=== PATIENT | male | born 1955 | race Caucasian/White ===

== ENCOUNTER 2017-05-13 15:19 | Emergency (ER) | payer OTHER, BC ==
[~2017-05-13] VITALS: Ht 182.9 cm; Wt 97.5 kg
--- OUTSIDE RECORDS SUMMARY | ~2017-05-13 | XMS | Clinical Summary ---
Demographics + + + | Address | [address] [place] [address] WAY | | | [place] [address] | + + + | Home Phone | | + + + | Preferred Language | Unknown | + + + | Marital Status | Single | + + + | Taoism Affiliation | Unknown | + + + | Race | White | + + + | Ethnic Group | Other Race | + + + Author + + + | Author | [facility] | + + + | Organization [...] Team Providers + +------+ + | Care Tube Bending Machine Operator Name | Role | Phone | + +------+ + | Santy Kyle MD | PP | | + +------+ + Source Comments MARYBEL is fully live on both [facility] Ambulatory and [facility] InPatient.[facility] Allergies Not on File Current Medications + + +-------+---------+------+------+-------+ | Prescription | Sig. | Disp. | Refills | Star | End | Statu | | | | | | t | Date | s | | | | | | Date | | | + + +-------+---------+------+------+-------+ | lamoTRIgine | Take 150 mg by mouth | | | | | Activ | | (LAMICTAL) 150 mg | two times daily. | | | | | e | | oral tablet | | | | | | | + + +-------+---------+------+------+-------+ | divalproex DR | Take 500 mg by mouth | | | | | Activ | | (DEPAKOTE) 500 mg | two times daily. | | | | | e | | oral tablet,delayed | | | | | | | | release (/CHERYL) | | | | | | | + + +-------+---------+------+------+-------+ | topiramate 100 mg | Take 100 mg by mouth | | | | | Activ | | oral tablet | two times daily. | | | | | e | + + +-------+---------+------+------+-------+ | FLUoxetine 10 mg | Take 10 mg by mouth | | | | | Activ | | oral tablet | once daily. | | | | | e | + + +-------+---------+------+------+-------+ | | Take 1 tablet by | | | | | Activ | | HYDROcodone-acetamin [...] | | | | | + + +-------+---------+------+------+-------+ | SUMAtriptan 6 | Inject 1 kit under | | | | | Activ | | mg/0.5 [...] | | | | | + + +-------+---------+------+------+-------+ | diphenhydrAMINE | 4-5 times daily as | | | | | Activ | | (BENADRYL) 25 mg | needed. | | | | | e | | oral capsule | | | | | | | + + +-------+---------+------+------+-------+ | naproxen 500 mg | Take 500 mg by mouth | | | | | Activ | | oral tablet | two times daily. | | | | | e | + + +-------+---------+------+------+-------+ Active Problems + + + | Problem [...] + +---------+ + | Alcohol Use | Drinks/We | oz/Week | Comments | | | ek | | | + + +---------+ + | Yes | | | | + + +---------+ + + + + | Sex Assigned at | Date Recorded | | | | + + + | Not on file | | + + + Last Filed Vital Signs + +---------+ + | Vital Sign | Reading | Time Taken | + +---------+ + | Blood Pressure | 119/66 | 01/16/2013 10:22 AM PST | + +---------+ + | Pulse | 54 | 01/16/2013 10:22 AM PST | + +---------+ + | Temperature | - | - | + +---------+ + | Respiratory Rate | - | - | + +---------+ + | Oxygen Saturation | - | - | + +---------+ + | Inhaled Oxygen | - | - | | Concentration | | | + +---------+ + | Weight | - | - | + +---------+ + | Height | - | - | + +---------+ + | Body Mass Index | - | - | + +---------+ + Plan of Treatment + + + + + | Health Maintenance | Due Date | Last Done | Comments | + + + + + | INFLUENZA VACCINE | | 12/02/2014 | | | (FLU SHOT) | 7 | | | + + + + + Results Not on filefrom Last 3 Months"
--- OUTSIDE RECORDS SUMMARY | ~2017-05-13 | XMS | Clinical Summary ---
Demographics + + + | Address | [address] [place] [address] WAY | | | [place] [address] | + + + | Home Phone | | + + + | Preferred Language | Unknown | + + + | Marital Status | Single | + + + | Latter Day Affiliation | Unknown | + + + | Race | White | + + + | Ethnic Group | Other Race | + + + Author + + + | Author | [facility] | + + + | Organization [...] Team Providers + +------+ + | Care Youth Career Specialist Name | Role | Phone | + +------+ + | Santy Kyle MD | PP | | + +------+ + Source Comments MARYBEL is fully live on both [facility] Ambulatory and [facility] InPatient.[facility] Allergies [...]
[~2017-05-13 15:19] MED LIST: DEPAKOTE ER500 MG PO; HYDROCODON-ACE1 EAC8 PO; IMITREX6 MG/0.5 M SQ; LAMICTAL150 MG PO; PROZAC10 MG PO; SEROQUEL XR300 MG PO; VERAPAMIL ER240 MG PO
[2017-05-13] MEDS ORDERED: GABAPENTIN300 MG PO (15:34)
== END 2017-05-13 18:31 | disposition home or self-care (01) ==
LOC: ED 15:19
DX: S76.311A Strain of muscle, fascia and tendon of the posterior muscle group at thigh level, right thigh, initial encounter (principal); Z79.899 Other long term (current) drug therapy; X50.9XXA Other and unspecified overexertion or strenuous movements or postures, initial encounter; Y93.39 Activity, other involving climbing, rappelling and jumping off; Y92.89 Other specified places as the place of occurrence of the external cause
CPT/HCPCS: 99282

== ENCOUNTER 2019-10-09 08:51 | Emergency (ER) | payer BC ==
[~2019-10-09] VITALS: Ht 182.9 cm; Wt 93.4 kg
--- OUTSIDE RECORDS SUMMARY | ~2019-10-09 | XMS | Encounter Summary ---
Demographics + + + | Address | [address] | | | [place] [address] | + + + | Home Phone | | + + + | Preferred Language | Unknown | + + + | Marital Status | | + + + | Latter-Day Affiliation | Unknown | + + + | Race | Unknown | + + + | Ethnic Group | Unknown | + + + Author + + + | Author | [facility] | | | and [place] | + + + | Organization | [facility] | | | and [place] | + + + | Address | Unknown | + + + | Phone | Unavailable | + + + Support + + +---------+ + | Name | Relationship | Address | Phone | + + +---------+ + | Alethea Zengey | ECON | Unknown | | + + +---------+ + | Zack Cee | ECON | Unknown | | + + +---------+ + Care Team Providers + +------+ + | Care Senior Coldfusion Developer Name | Role | Phone | + +------+ + | Santy Kyle MD | PCP | | + +------+ + Encounter Details +--------+ + + + + | Date | Type | Department | Care Team | Description | +--------+ + + + + | 09/18/ | Orders Only | [facility] | Provider, | | | 2018 | | [facility] GENER[facility] OP | [address] | | | | | [address] | [address] | | | | | [address], [place] | [place] [address] | | | | | [address] | | | | | | [phone] | | | +--------+ + + + + Social History + +-------+ +--------+------+ | Tobacco Use | Types | Packs/Day | Years | Date | | | | | Used | | + +-------+ +--------+------+ | Never Smoker | | | | | + +-------+ +--------+------+ + +---+---+---+ | Smokeless Tobacco: | | | | | Never Used | | | | + +---+---+---+ + + +---------+ + | Alcohol Use | Drinks/Week | oz/Week | Comments | + + +---------+ + | Yes | 0 Standard drinks | 0.0 | twice monthly | | | or equivalent | | | + + +---------+ + + + + | Sex Assigned at | Date Recorded | | | | + + + | Not on file | | + + + documented as of this encounter Plan of Treatment +--------+---------+ + + + | Date | Type | Specialty | Care Team | Description | +--------+---------+ + + + | 10/30/ | Office | Neurology | Isac Arechiga, | | | 2020 | Visit | | [facility] | | | | | | [address] | | | | | | [place] [address] | | | | | | [phone] | | | | | | | | +--------+---------+ + + + documented as of this encounter Visit Diagnoses Not on filedocumented in this encounter"
--- OUTSIDE RECORDS SUMMARY | ~2019-10-09 | XMS | Clinical Summary ---
Demographics + + + | Address | [address] | | | [place] [address] | + + + | Home Phone | | + + + | Preferred Language | Unknown | + + + | Marital Status | Single | + + + | Mormonism Affiliation | Unknown | + + + | Race | White | + + + | Ethnic Group | Other Race | + + + Author + + + | Author | [facility] | + + + | Organization | [facility] | + + + | Address | Unknown | + + + | Phone | Unavailable | + + + Support + + +---------+ + | Name | Relationship | Address | Phone | + + +---------+ + | Alethea Contreras | ECON | Unknown | | + + +---------+ + Care Team Providers + +------+ + | Care Ophthalmic Assistant Name | Role | Phone | + +------+ + | Santy Kyle MD | PCP | | + +------+ + Source Comments MARYBEL is fully live on both [facility] Ambulatory and [facility] InPatient.[facility] Allergies Not on File Medications + + + +---------+------+------+-------+ | Medication | Sig | Dispensed | Refills | Star | End | Statu | | | | | | t | Date | s | | | | | | Date | | | + + + +---------+------+------+-------+ | lamoTRIgine | Take 150 mg by mouth | | 0 | | | Activ | | (LAMICTAL) 150 mg | two times daily. | | | | | e | | oral tablet | | | | | | | + + + +---------+------+------+-------+ | divalproex DR | Take 500 mg by mouth | | 0 | | | Activ | | (DEPAKOTE) 500 mg | two times daily. | | | | | e | | oral tablet,delayed | | | | | | | | release (/CHERYL) | | | | | | | + + + +---------+------+------+-------+ | topiramate 100 mg | Take 100 mg by mouth | | 0 | | | Activ | | oral tablet | two times daily. | | | | | e | + + + +---------+------+------+-------+ | FLUoxetine 10 mg | Take 10 mg by mouth | | 0 | | | Activ | | oral tablet | once daily. | | | | | e | + + + +---------+------+------+-------+ | | Take 1 tablet by | | 0 | | | Activ | | HYDROcodone-acetamin | mouth as needed. Not | | | | | e | | ophen 10-325 mg oral | to exceed 10 | | | | | | | tablet | tablets per any 24 | | | | | | | | hour period. (Not to | | | | | | | | exceed 3250 mg of | | | | | | | | acetaminophen from | | | | | | | | all products per 24 | | | | | | | | hour period.) | | | | | | + + + +---------+------+------+-------+ | SUMAtriptan 6 | Inject 1 kit under | | 0 | | | Activ | | mg/0.5 mL | the skin (SUBC) as | | | | | e | | subcutaneous Pen | needed. A second | | | | | | | Injector | injection may be | | | | | | | | administered at | | | | | | | | least 1 hour after | | | | | | | | the initial dose, | | | | | | | | but not more than 2 | | | | | | | | injections in a 24 | | | | | | | | hour period. | | | | | | + + + +---------+------+------+-------+ | diphenhydrAMINE | 4-5 times daily as | | 0 | | | Activ | | (BENADRYL) 25 mg | needed. | | | | | e | | oral capsule | | | | | | | + + + +---------+------+------+-------+ | naproxen 500 mg | Take 500 mg by mouth | | 0 | | | Activ | | oral tablet | two times daily. 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 | + + + Social History + +-------+ +--------+------+ | Tobacco Use | Types | Packs/Day | Years | Date | | | | | Used | | + +-------+ +--------+------+ | Never Smoker | | | | | + +-------+ +--------+------+ + + +---------+ + | Alcohol Use | Drinks/Week | oz/Week | Comments | + + +---------+ + | Yes | | | | + + +---------+ + + + + | Sex Assigned at | Date Recorded | | | | + + + | Not on file | | + + + + + + + | Job Start Date | Occupation | Industry | + + + + | Not on file | Not on file | Not on file | + + + + + + + + | Travel History | Travel Start | Travel End | + + + + + + | No recent travel history available. | + + Last Filed Vital Signs + +---------+ + + | Vital Sign | Reading | Time Taken | Comments | + +---------+ + + | Blood Pressure | 119/66 | 01/16/2013 10:22 AM | | | | | PST | | + +---------+ + + | Pulse | 54 | 01/16/2013 10:22 AM | | | | | PST | | + +---------+ + + | Temperature | - | - | | + +---------+ + + | Respiratory Rate | - | - | | + +---------+ + + | Oxygen Saturation | - | - | | + +---------+ + + | Inhaled Oxygen | - | - | | | Concentration | | | | + +---------+ + + | Weight | - | - | | + +---------+ + + | Height | - | - | | + +---------+ + + | Body Mass Index | - | - | | + +---------+ + + Plan of Treatment + + + + + | Health Maintenance | Due Date | Last Done | Comments | + + + + + | Influenza (Flu) | | 12/02/2014 | | | vaccination (#1) | 9 | | | + + + + + | Pneumococcal | Aged Out | | No longer eligible | | vaccination | | | based on patient's | | | | | age to complete this | | | | | topic | + + + + + Results Not on filefrom Last 3 Months Insurance + +--------+ +--------+ + +------+ | Payer | Benefi | Subscriber | Effect | Phone | Address | Type | | | t Plan | ID | ajit | | | | | | / | | Dates | | | | | | Group | | | | | | + +--------+ +--------+ + +------+ | [place] | BLUE | [phone] | Effect | [phone] | [address] | PPO | | | CROSS | | ajit | [address] | [phone] [address] | | | | [place] | | for | | [place], | | | | L | | all | | [place] [address] | | | | | | dates | | | | + +--------+ +--------+ + +------+ | MODA | MODA | [phone] | Effect | [phone] | [address] | PPO | | | CONNEX | | ajit | 4 | [phone] | | | | [place] | | for | | [place], | | | | | | all | | [place] [address] | | | | | | dates | | | | + +--------+ +--------+ + +------+ + +--------+ +--------+ + + | Guarantor Name | Accoun | Relation to | Date | Phone | Billing Address | | | t Type | Patient | of | | | | | | | | | | + +--------+ +--------+ + + | Gera Contreras | Person | Self | [birth year] | [address] | | | [place] | | 1954 | [phone] | [place] | | | jessica | | | 8 (Home) | [address] | | | | | | [phone] | | | | | | | 4 (Work) | | + +--------+ +--------+ + +"
--- OUTSIDE RECORDS SUMMARY | ~2019-10-09 | XMS | Encounter Summary ---
Demographics + + + | Address | [address] | | | [place] [address] | + + + | Home Phone | | + + + | Preferred Language | Unknown | + + + | Marital Status | | + + + | Adventist Affiliation | Unknown | + + + | Race | Unknown | + + + | Ethnic Group | Unknown | + + + Author + + + | Author | [facility] | | | and [place] | + + + | Organization | [facility] | | | and [...] Team Providers + +------+ + | Care Retort Kiln Burner Name | Role | Phone | + +------+ + | Santy Kyle MD | PCP | | + +------+ + Reason for Visit + + + | Reason | Comments | + + + | Medication Refill | | + + + Encounter Details +--------+--------+ + + + | Date | Type | Department | Care Team | Description | +--------+--------+ + + + | 05/28/ | Refill | [facility] | Isac Arechiga, | Medication Refill | | 2020 | | NEUROLOGY [address] | [address] | | | | | [address] | [address] [facility] [address] | | | | | [place], [place] | [place] [address] | | | | | [address] | [phone] | | | | | [phone] | | | +--------+--------+ + + + Social History + +-------+ [...] + + documented as of this encounter Miscellaneous Notes Telephone Encounter - Joanne Gonzalez, Senior Nuclear Medicine Technologist - 05/29/2019 11:28 AM PDTLast Refill:10/26/18 Refill Qty:5 Last Visit:09/07/19 Next Appt:08/08/19 Called patient: yes called patient to RS missed appointment in 11/2018 and we RS to 08/08/19 @ 3:45pm Please sign if appropriate. do cumented in this encounter Plan of Treatment +--------+---------+ + + + | Date | Type | Specialty | Care Team | Description | +--------+---------+ + + + | 10/30/ | Office | Neurology | Isac Arechiga, | | | 2019 | Visit | | [facility] | | | | | | [address] | | | | | | [place] [address] | | | | | | [phone] | | | | | | | | +--------+---------+ + + + documented as of this encounter Visit Diagnoses Not on filedocumented in this encounter"
--- OUTSIDE RECORDS SUMMARY | ~2019-10-09 | XMS | Encounter Summary ---
Demographics + + + | Address | [address] | | | [place] [address] | + + + | Home Phone | | + + + | Preferred Language | Unknown | + + + | Marital Status | | + + + | Gnosticist Affiliation | Unknown | + + + | Race | Unknown | + + + | Ethnic Group | Unknown | + + + Author + + + | Author | [facility] | | | and [place] | + + + | Organization | [facility] | | | and [...] Team Providers + +------+ + | Care Rn Admit Name | Role | Phone | + +------+ + | No, Unknownpcp | PCP | | + +------+ + Encounter Details +--------+ + + + + | Date | Type | Department | Care Team | Description | +--------+ + + + + | 03/15/ | Hospital | [facility] | Seema Figueroa, | | | 2013 | Encounter | [facility] | PET ADOPTION COUNSELOR [address] | | | | | [facility] [address] | [address] [place], [place] | | | | | [address] [place], | [address] | | | | | [place] [address] | | | | | | [phone] | | | +--------+ + + + [...] +---------+ + | Yes | | | twice monthly | + + +---------+ + + + + | Sex Assigned at | Date Recorded | | | | + + + | Not on file | | + + + documented as of this encounter Medications at Time of Discharge + + + +---------+ + + | Medication | Sig | Dispensed | Refills | Start | End Date | | | | | | Date | | + + + +---------+ + + | FLUoxetine | Take 20 mg by mouth | | 0 | | | | (PROZAC) 20 mg | Daily. | | | | | | capsule | | | | | | + + + +---------+ + + | divalproex | 2 tablets by mouth | | 0 | 11/05/19 | | | (DEPAKOTE) 500 mg EC | at bedtime | | | 12 | 6 | | tablet | | | | | | + + + +---------+ + + | | 1 3-4 TIMES A DAY | | 0 | 11/05/19 | | | HYDROcodone-acetamin | NEEDED | | | 12 | 0 | | ophen (NORCO) 10-325 | | | | | | | mg per tablet | | | | | | + + + +---------+ + + | lamotrigine | Take 150 mg by mouth | | 0 | 11/05/19 | | | (LAMICTAL) 150 MG | 2 times daily. | | | 12 | 0 | | tablet | | | | | | + + + +---------+ + + | nadolol (CORGARD) | Take 40 mg by mouth | | 0 | | | | 40 mg tablet | Daily. | | | | 6 | + + + +---------+ + + | SUMAtriptan | Take 50 mg by mouth | | 0 | 11/05/19 | | | (IMITREX) 50 mg | as needed. | | | 12 | 0 | | tablet | | | | | | + + + +---------+ + + documented as of this encounter Plan of Treatment +--------+---------+ + + + | Date | Type | Specialty | Care Team | Description | +--------+---------+ + + + | 10/30/ | Office | Neurology | Isac Arechiga, | | | 2020 | Visit | | [facility] | | | | | | [address] | | | | | | [place] [address] | | | | | | [phone] | | | | | | | | +--------+---------+ + + + documented as of this encounter Visit Diagnoses Not on filedocumented in this encounter"
--- OUTSIDE RECORDS SUMMARY | ~2019-10-09 | XMS | Encounter Summary ---
Demographics + + + | Address | [address] | | | [place] [address] | + + + | Home Phone | | + + + | Preferred Language | Unknown | + + + | Marital Status | | + + + | Lutheran Affiliation | Unknown | + + + | Race | Unknown | + + + | Ethnic Group | Unknown | + + + Author + + + | Author | [facility] | | | and [place] | + + + | Organization | [facility] | | | [...] Team Providers + +------+ + | Care Night Clerk Auditor Name | Role | Phone | + +------+ + | Santy Kyle MD | PCP | | + +------+ + Reason for Visit + +--------+ + | Reason | Onset | Comments | | | Date | | + +--------+ + | Medication Question | 08/19/ | | | | 2020 | | + +--------+ + Encounter Details +--------+--------+ + + + | Date | Type | Department | Care Team | Description | +--------+--------+ + + + | 08/19/ | Refill | [facility] | Isac Arechiga, | Medication Question | | 2020 | | NEUROLOGY [address] | [address] | | | | | [address] | [address] | | | | | [place], [place] | [place] [address] | | | | | [address] | [phone] | | | | | [phone] | | | +--------+--------+ + + + [...] this encounter Miscellaneous Notes Telephone Encounter - Simona Valle CMA - 08/20/2019 11:16 AM [facility] called and spoke to Raad keller regarding his insurance denying coverage of Ubrelvy. He stated that he already picked up the Ubrelvy at the pharmacy. I explained that the copay card he used will only work for t he 1st fill and not for the subsequent refills since the insurance denied coverage. I explai yolette his option of covered preventatives. Since he has tried Aimovig without sustained effica cy, his next option is Emgality. He agreed to try Emgality. Prescription request for Emgalit y sent to provider. doc umented in this encounter Plan of Treatment +--------+---------+ + + + | Date | Type | Specialty | Care Team | Description | +--------+---------+ + + + | 10/30/ | Office | Neurology | Isac Arechiga, | | 2019 | Visit | | [facility] | | | | | | [address] | | | | | | [place] [address] | | | | | | [phone] | | | | | | | | +--------+---------+ + + + documented as of this encounter Visit Diagnoses Not on filedocumented in this encounter"
--- OUTSIDE RECORDS SUMMARY | ~2019-10-09 | XMS | Encounter Summary ---
Demographics + + + | Address | [address] | | | [place] [address] | + + + | Home Phone | | + + + | Preferred Language | Unknown | + + + | Marital Status | | + + + | Jain Affiliation | Unknown | + + + | Race | Unknown | + + + | Ethnic Group | Unknown | + + + Author + + + | Author | [facility] | | | and [place] | + + + | Organization | [facility] | | | and [place] | + + + | Address | Unknown | + + + | Phone | Unavailable | + + + Support + + +---------+ + | Name | Relationship | Address | Phone | + + +---------+ + | Alethea Diane | ECON | Unknown | | + + +---------+ + | Zack Cee | ECON | Unknown | | + + +---------+ + Care Team Providers + +------+ + | Care Writer Name | Role | Phone | + +------+ + PCP | Unavailable | + +------+ + Encounter Details +--------+ + + + + | Date | Type | Department | Care Team | Description | +--------+ + + + + | 11/15/ | Hospital | [facility] | Gera Strong | | | 2009 | Encounter | MED CTR XRAY [address] | [address] | | | | | [place] | [address] [place] | | | | | [place] [address] | [place] [address] | | | | | [phone] | [phone] | | | | | | | | +--------+ + + + + Social History + +-------+ +--------+------+ | Tobacco Use | Types | Packs/Day | Years | Date | | | | | Used | | + +-------+ +--------+------+ | Never Assessed | | | | | + +-------+ +--------+------+ + + + | Sex Assigned at [...] | | | | | [place] [address] | | | | | | [phone] | | | | | | | | +--------+---------+ + + + documented as of this encounter Visit Diagnoses Not on filedocumented in this encounter"
--- OUTSIDE RECORDS SUMMARY | ~2019-10-09 | XMS | Encounter Summary ---
Demographics + + + | Address | [address] | | | [place] [address] | + + + | Home Phone | | + + + | Preferred Language | Unknown | + + + | Marital Status | | + + + | Restoration Affiliation | Unknown | + + + | Race | Unknown | + + + | Ethnic Group | Unknown | + + + Author + + + | Author | [facility] | | | and [place] | + + + | Organization | [facility] | | [...] Team Providers + +------+ + | Care Medical Practitioners Name | Role | Phone | + +------+ + PCP | Unavailable | + +------+ + Encounter Details +--------+ + + + + | Date | Type | Department | Care Team | Description | +--------+ + + + + | 06/08/ | Hospital | [facility] | | | | 2006 | Encounter | MED CTR XRAY [address] | | | | | | [address] | | | | | | [place] [address] | | | | | | [phone] | | | +--------+ + + + [...] [facility]ICE | | | | | | [address] | | | | | | [place] [address] | | | | | | [phone] | | | | | | | | +--------+---------+ + + + documented as of this encounter Visit Diagnoses Not on filedocumented in this encounter"
--- OUTSIDE RECORDS SUMMARY | ~2019-10-09 | XMS | Encounter Summary ---
Demographics + + + | Address | [address] | | | [place] [address] | + + + | Home Phone | | + + + | Preferred Language | Unknown | + + + | Marital Status | Single | + + + | Alevism Affiliation | Unknown | + + + | Race | White | + + + | Ethnic Group | Other Race | + + + Author + + + | Author | [facility] | + + + | Organization | [facility] | + + + | Address | Unknown | + + + | Phone | Unavailable | + + + Support + + +---------+ + | Name | Relationship | Address | Phone | + + +---------+ + | Alethea Contreras | ECON | Unknown | | + + +---------+ + Care Team Providers + +------+ + | Care Moving Worker Name | Role | Phone | + +------+ + | Santy Kyle MD | PCP | | + +------+ + Reason for Visit + + + | Reason | Comments | + + + | New patient | | | consultation | | + + + Consultation (Routine) +--------+--------+ + + + + | Status | Reason | Specialty | Diagnoses / | Referred By | Referred To | | | | | Procedures | Contact | Contact | +--------+--------+ + + + + | Closed | | Neurology | Diagnoses | Dickson, | [facility] | | | | | Chorea, tic | Lawson Bazan MD | Disorder Chh1 | | | | | disorder, | [place] | [address] | | | | | unusual | CLINIC | [facility] | | | | | movement | NEUROLOGY | for Health | | | | | disorder | [address] | and Healing, | | | | | | [address] | [address], | | | | | | [place], [place] | 8th Floor | | | | | | [address] | [place], [place] | | | | | | Phone: | [phone] | | | | | | [phone] | Phone: | | | | | | Fax: | [phone] | | | | | | [phone] | Fax: | | | | | | | [phone] | +--------+--------+ + + + + Encounter Details +--------+---------+ + + + | Date | Type | Department | Care Team | Description | +--------+---------+ + + + | 01/16/ | Office | Neurology at | Mika Jason MD | Psychogenic movement | | 2012 | Visit | [facility] & | [address] | disorder (Primary | | | | Healing [address] | [place], [place] | Dx) | | | | [facility] | [address] | | | | | Health and Healing, | [phone] | | | | | | | | | | | Floor [place], [place] | | | | | | [address] | | | | | | [phone] | | | +--------+---------+ + + + Social History + +-------+ [...] recent travel history available. | + + documented as of this encounter Last Filed Vital Signs + +---------+ + [...] - | | + +---------+ + + documented in this encounter Progress Notes Mika Jason MD - 01/16/2013 9:14 AM PST 58 year old man referred for evaluation of spells of shaking. He has been in good general health, although his has seen episodes of behavioral arres t ("brain zap"), ataxia ("knee giving out"), abdominal spasms with head tilt about 6 years a go (spontaneous remission after 6 weeks), and verbal outbursts ("meow", expletives), and tic -like clapping. About one month ago he began having trouble walking and driving while [place]. 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 Also funny head movements and "brain zaps", and then started having very dramatic episodes of abdominal spasm, grimacing, eyes closed, f etal position, lasting 3-7 minutes and occurring about twice a day. Also variants on this w ith unusual "choreographed" movements heralding the spells. Between episodes he is fatigued and he has been unable to return to work. He had an episode in our waiting room that will be described below. ROS: some pinkish urine, and some apparent olfactory hallucinations Past Medical History: Bipolar disorder (for which he takes depakote and lamictal) Migraines and cluster headache (for which he takes topamax) Hx neck fracture at age 22 with paralysis for 3 days and then complete recovery without adriano marilee 11 day hospitalization at age 34 for hematuria leading to a ureteral stent Current Outpatient Prescriptions Medication Sig diphenhydrAMINE (BENADRYL) 25 mg oral capsule 4-5 times daily as needed. divalproex DR (DEPAKOTE) 500 mg oral tablet,delayed release (DR/EC) Take 500 mg by mout h two times daily. FLUoxetine 10 mg oral tablet Take 10 mg by mouth once daily. HYDROcodone-acetaminophen 10-325 mg oral tablet Take 1 tablet by mouth as needed. Not t o exceed 10 tablets per any 24 hour period. (Not to exceed 3250 mg of acetaminophen from all products per 24 hour period.) lamoTRIgine (LAMICTAL) 150 mg oral tablet Take 150 mg by mouth two times daily. naproxen 500 mg oral tablet Take 500 mg by mouth two times daily. SUMAtriptan 6 mg/0.5 mL subcutaneous Pen Injector Inject 1 kit under the skin (SUBC) as needed. A second injection may be administered at least 1 hour after the initial dose, but not more than 2 injections in a 24 hour period. topiramate 100 mg oral tablet Take 100 mg by mouth two times daily. No current facility-administered medications for this visit. AllergiesNKDA` Family History: mother with fibromyalgia, father with what sounds like vertigo. Two healthy brothers, three healthyy daughters (one with bipolar and tethered cord). 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 Non-smoker, rare etoh, rare MJ PE: Vital signs: 119/66 HR=56 He had an episode beginning in the waiting area with abdominal spasms. The staff moved him quickly to an exam room, where I saw him lying on an exam table, curled up in positio n, grimacing and grunting and with occasional jerking movements. His fists were clenched an d his arms curled tightly, but he was able to answer questions appropriately throughout the episode, reporting that he felt "all squished up." After a couple of minutes of this he gra dually relaxed and he lay on the table looking exhausted. The exam below was completed delvin ral minutes later after he had recovered. CN: II-XII intact to detailed testing Motor: no pronator drift, no tremor, no rigidity, no bradykinesia. He also has full streng th. DTR: 2+ and equal SENSORY: grossly intact to LT COORD: FTN, HTS WNL. Romberg negative. Gait is WNL. Unable to walk on heels or toes, losing balance but catching himself without injury. He also had some hunching over in the exam room and some intermittent writhng movements of head and trunk but these were variable and distractable. Impression: Psychogenic movement disorder Although there are some historical features of tourette's, he does not describe a compulsio n to move or vocalize as we would expect with a tic disorder, and the spell we witnessed tod alina was closer to a non-epileptic seizure than a tic. The variability over time, the history of exacerbation with stress, and the ability to respond and interact during the most dramat ic episode all point to a psychogenic etiology. I shared this impression with the patient and his in some detail, and indicated furthe r that he can make a good recovery. Plan: 1) some patients with the condition get excellent results from physical therapy with the go al of "re-programming" abnormal motor programs. Since he has daily trouble with his gait I think he could benefit from this approach. Will ask Dr Kyle to assist with an appropriate PT referral in the [place] area. 2) the benefits of psychiatric intervention for this condition are quite variable, but sinc e he has an established mental health provider this is probably worth a try. I suggested th at short term, low dose anti-anxiety meds (ie, benzodiazepines) may be helpful for "breaking the cycle" of this stress-related condition. 3) he is anxious to get back to work but his reported that deadlines are a likely sour ce of significant stress for him. I suggested a parameter of a week free of these severe ep isodes before trying to return to work. 4) I will also try to connect with Dr Kyle by telephone to discuss management further.Caro ctronically signed by Mika Jason MD at 01/16/2013 1:06 PM PSTdocumented in this encounte r Plan of Treatment Not on filedocumented as of this encounter Visit Diagnoses + + | Diagnosis | + + | Psychogenic movement disorder - Primary Other and unspecified special symptom or | | syndrome, not elsewhere classified | + + documented in this encounter
--- OUTSIDE RECORDS SUMMARY | ~2019-10-09 | XMS | Encounter Summary ---
Demographics + + + | Address | [address] | | | [place] [address] | + + + | Home Phone | | + + + | Preferred Language | Unknown | + + + | Marital Status | | + + + | Sikh Affiliation | Unknown | + + + | Race | Unknown | + + + | Ethnic Group | Unknown | + + + Author + + + | Author | [facility] | | | and [place] | + + + | Organization | [facility] | | | [...] Team Providers + +------+ + | Care Area Development Manager Name | Role | Phone | + +------+ + | Santy Kyle MD | PCP | | + +------+ + Reason for Visit + + + | Reason | Comments | + + + | Sleep Apnea | Follow up | + + + Encounter Details +--------+---------+ + + + | Date | Type | Department | Care Team | Description | +--------+---------+ + + + | 11/02/ | Office | [facility] | Femi Morales, | Obstructive sleep | | 2015 | Visit | PULMONARY [address] | MD [address] | apnea (Primary Dx) | | | | [place], | [place] | | | | | [place] [address] | [address] | | | | | [phone] | | | +--------+---------+ + + + [...] | | | + +---+---+---+ + + | Tobacco Cessation: Counseling Given: No | + + + + +---------+ + | Alcohol Use [...] this encounter Last Filed Vital Signs + + + + + | Vital Sign | Reading | Time Taken | Comments | + + + + + | Blood Pressure | 112/80 | 11/03/2015 9:23 AM | | | | | PDT | | + + + + + | Pulse | 52 | 11/03/2015 9:23 AM | | | | | PDT | | + + + + + | Temperature | - | - | | + + + + + | Respiratory Rate | - | - | | + + + + + | Oxygen Saturation | 96% | 11/03/2015 9:23 AM | | | | | PDT | | + + + + + | Inhaled Oxygen | - | - | | | Concentration | | | | + + + + + | Weight | 93 kg (205 lb 1.6 | 11/03/2015 9:23 AM | | | | oz) | PDT | | + + + + + | Height | 185.4 cm (6' 1") | 11/03/2015 9:23 AM | | | | | PDT | | + + + + + | Body Mass Index | 27.06 | 11/03/2015 9:23 AM | | | | | PDT | | + + + + + documented in this encounter Patient Instructions Patient Instructions Femi Morales MD - 11/03/2015 9:51 AM PDT Continuous Positive Air Pressure (CPAP) Continuous positive air pressure (CPAP)uses gentle air pressure to hold the airway open. CPAP is often the most effective treatment for sleep apnea and severe snoring. It works very well for many people. But keep in mind that it can take several adjustments before the setu p is right for you. How CPAP works The CPAPmachine is asmall portable pump beside the bed. The pumpsends air through a h ose, which is held over your noseand mouthby a mask.Mild air pressureis gently pushe d through your airway. The air pressure nudges sagging tissues aside. This widens the airway so you can breathe better. CPAP may be combined with other kinds of therapy for sleep apnea . A mask over the nose gently directs air into the throat to keep the airway open. Types of air pressure treatments There are different types of CPAP. Your doctor or CPAP entry level automotive technician will help you decide whic h type is best for you: Basic CPAPkeeps the pressure constant all night long. A bilevel device(BiPAP)providesmore pressure when you breathe in and less when you breathe out.A BiPAP machine also may be set to provide automatic breaths to maintain cristine thing if you stop breathing while sleeping. An autoCPAP deviceautomatically adjusts pressure throughout the night and in response to changes such as body position, sleep stage, and snoring. [id number] [employer]. [address] [place] [address], [place] [address]. All righ ts reserved. This information is not intended as a substitute for professional medical care. Always follow your healthcare professional's instructions. documented in this encounter Progress Notes Femi Morales MD - 11/03/2015 9:37 AM PDTFormatting of this note might be different f rom the original. Pulmonary Sleep Follow Up 11/03/2015 HPI Gera Contreras is a 60 y.o. male patient of Santy Kyle MD here today for follow up of obstructive sleep apnea. He notes that they have been wearing their CPAP 8.4 hours per night 7 days per week. Their compliance has been Excellent,. They are not having issues with their CPAP machine such as the sensation of excessive pressure or a poorly fitting mask. Gera Contreras feesl like they are more rested since starting on CPAP. They are napping on a regular basis. Gera Contreras is not noting nasal congestion. They have the humidity on the machine set at unclear level. Gera Contreras typically goes to bed at 9-12 PM and rises in the morning to start the da y at 6:30 AM. He estimates that it takes <5 minutes to fall asleep. They typically have noc turia or other nighttime awakenings 8 times a night and he usually gets back to sleep easily . Rested with CPAP. No snoring pr spouse. He has has replaced their CPAP mask or tubing in the last year. Past Medical History Past Medical History Diagnosis Date Kidney stone 1987 Dystonia GERD (gastroesophageal reflux disease) Allergic rhinitis Sleep apnea 2008 AHI 33.9, 82%, CPAP 7 Anxiety associated with depression Migraine headache Bipolar disorder (HCC) 2003 Concussion 1976 H/O cervical fracture 1976 C4-5-6 Piriformis syndrome Ischial pain 01/30 Right ischial tuberostiy and rectu femoris pain w/a right femur x-ray showing a 1.5 to 2 capsule density Allergies: No Known Allergies Medications: Current outpatient prescriptions: divalproex (DEPAKOTE) 500 mg EC tablet, Take 500 mg by mouth 2 times daily., Disp: , R fl: FLUoxetine (PROZAC) 20 mg capsule, Take 20 mg by mouth Daily., Disp: , Rfl: HYDROcodone-acetaminophen (NORCO) 10-325 mg per tablet, 1 3-4 TIMES A DAY NEEDED, D isp: , Rfl: lamotrigine (LAMICTAL) 150 MG tablet, Take 150 mg by mouth 2 times daily., Disp: , Rfl : SUMAtriptan (IMITREX) 50 mg tablet, Take 50 mg by mouth as needed., Disp: , Rfl: tiZANidine (ZANAFLEX) 4 mg tablet, Take one tablet daily, Disp: , Rfl: 2 Immunizations: Immunization History Administered Date(s) Administered INFLUENZA, TRIVALENT PRESERVATIVE FREE (PED/ADOL/ADULT) 12/02/2014 Review of Systems Constitutional: Denies fever, chills, sweats, and unexpected weight change. Sleep: Denies insomnia or RLS symptoms. Eyes: Denies vision change, and eye irritation. ENT: Denies nosebleeds, sore throat, and hoarseness. Resp: Denies dyspnea, cough or sputum production. CV: Denies chest pain with exertion, palpitations, lightheadedness, orthopnea or PND. Neurologic: Denies frequent headaches, seizures or tremors. Allergy Denies urticaria, allergic rash, hay fever. Objective BP 112/80 mmHg | Pulse 52 | Ht 1.854 m (6' 1") | Wt 93.033 kg (205 lb 1.6 oz) | BMI 27.07 k g/m2 | SpO2 96% Appearance: Alert, cooperative, no distress, appears stated age Head: Normocephalic, without obvious abnormality, atraumatic Eyes: PERRL, conjunctiva/corneas clear Nose: Nares normal, septum midline, mucosa normal, no drainage or sinus tenderness Throat: Lips, mucosa, and tongue normal; teeth/dentures normal, MP 3 Neck: Supple, symmetrical, no JVD Lungs: No accessory muscle use, breath sounds are clear to auscultation bilaterally, no w heezes, crackles or rhonchi. No dullness to percussion. Chest Wall: No tenderness or deformity Heart: Regular rate and rhythm, S1, S2 normal, no murmur, rub or gallop Extremities: Extremities normal, atraumatic, no cyanosis, clubbing, or edema Skin: Warm and dry Lymph nodes: Cervical and supraclavicular nodes normal Neurologic: Gait normal Data: CPAP compliance data from 05/01/15 through 07/29/15 shows that the patient wore CPAP 89/ 90 days. Average usage is 8 hours and 28 minutes. Pressure is at 6 cm H2O. Assessment 1. Obstructive sleep apnea moderate/severe based on an RDI of 33.9 with oxygen desaturat ion down to 82%. The patient is currently wearing CPAP with excellent compliance at a press ure of 6 cm H2O. Uses using a nasal mask without issue. The patient's weight has decreased 5 lbs. 9 oz. since his last clinic appointment over 3 an d half years ago. Today we discussed the typical follow-up process for obstructive sleep apnea. The patient had several questions regarding replacement equipment and water used for the humidifier. There is no indication to change the patient's CPAP pressure. Plan 1. Pulmonary clinic follow-up appointment in 12 months time if desired by patient. 2. Continue CPAP at pressure as described above. CC: Santy Kyle MD documented in this encounter Plan of Treatment +--------+---------+ + + + | Date | Type | Specialty | Care Team | Description | +--------+---------+ + + + | 10/30/ | Office | Neurology | Isac Arechiga, | | | 2019 | Visit | | [facility] | | | | | | [facility] | | | | | | [facility] [place] [address] | | | | | | [phone] | | | | | | | | +--------+---------+ + + + documented as of this encounter Visit Diagnoses + + | Diagnosis | + + | Obstructive sleep apnea - Primary Obstructive sleep apnea (adult) (pediatric) | + + documented in this encounter
--- OUTSIDE RECORDS SUMMARY | ~2019-10-09 | XMS | Encounter Summary ---
Demographics + + + | Address | [address] | | | [place] [address] | + + + | Home Phone | | + + + | Preferred Language | Unknown | + + + | Marital Status | Single | + + + | Adventism Affiliation | Unknown | + + + | Race | White | + + + | Ethnic Group | Other Race | + + + Author + + + | Author | [facility] | + + + | Organization | [facility] | + + + | Address | Unknown | + + + | Phone | Unavailable | + + + Support + + +---------+ + | Name | Relationship | Address | Phone | + + +---------+ + | Alethea Contreras | ECON | Unknown | | + + +---------+ + Care Team Providers + +------+ + | Care Research Software Engineer Name | Role | Phone | + +------+ + | Santy Kyle MD | PCP | | + +------+ + Encounter Details +--------+ + + + + | Date | Type | Department | Care Team | Description | +--------+ + + + + | 07/16/ | Abstract | Neurology at | Clinic, Neurology | | | 2016 | | [facility] & | | | | | | Healing [address] | | | | | | [facility] | | | | | | Health and Healing, | | | | | | Building | | | | | | [place], [place] | | | | | | [address] | | | | | | [phone] | | | +--------+ + + + [...] as of this encounter Plan of Treatment Not on filedocumented as of this encounter Visit Diagnoses Not on filedocumented in this encounter"
--- OUTSIDE RECORDS SUMMARY | ~2019-10-09 | XMS | Encounter Summary ---
Demographics + + + | Address | [address] | | | [place] [address] | + + + | Home Phone | | + + + | Preferred Language | Unknown | + + + | Marital Status | | + + + | Restorationist Affiliation | Unknown | + + + | Race | Unknown | + + + | Ethnic Group | Unknown | + + + Author + + + | Author | [facility] | | | and [place] | + + + | Organization | [facility] | | | and [...] Team Providers + +------+ + | Care Plc Technician Name | Role | Phone | + +------+ + PCP | Unavailable | + +------+ + Encounter Details +--------+ + + + + | Date | Type | Department | Care Team | Description | +--------+ + + + + | 06/30/ | Hospital | [facility] | Femi Morales, | | | 2005 | Encounter | MED CTR SLEEP | [address] | | | | | [address] | [place] | | | | | [place] | [address] | | | | | [address] | | | | | | [phone] | | | +--------+ + + + [...] | | | | | [place] [address] | | | | | | [phone] | | | | | | | | +--------+---------+ + + + documented as of this encounter Visit Diagnoses Not on filedocumented in this encounter"
--- OUTSIDE RECORDS SUMMARY | ~2019-10-09 | XMS | Encounter Summary ---
Demographics + + + | Address | [address] | | | [place] [address] | + + + | Home Phone | | + + + | Preferred Language | Unknown | + + + | Marital Status | Single | + + + | Yarsanism Affiliation | Unknown | + + + | Race | White | + + + | Ethnic Group | Other Race | + + + Author + + + | Author | [facility] | + + + | Organization | [facility] | + + + | Address | Unknown | + + + | Phone | Unavailable | + + + Support + + +---------+ + | Name | Relationship | Address | Phone | + + +---------+ + | Alethea Contreras | ECON | Unknown | | + + +---------+ + Care Team Providers + +------+ + | Care Dance Choreographer Name | Role | Phone | + +------+ + | Santy Kyle MD | PCP | | + +------+ + Encounter Details +--------+ + + + + | Date | Type | Department | Care Team | Description | +--------+ + + + + | 01/10/ | Abstract | Neurology Movement | Clinic, Neurology | | | 2012 | | Disorders Clinic at | | | | | | [facility] | | | | | | and Healing [address] | | | [address] [facility] | | | | | | Health and Healing, | | | | | | Building | | | | | | Floor [place], [place] | | | | | | [address] | | | | | | [phone] | | | +--------+ + + + [...]
--- OUTSIDE RECORDS SUMMARY | ~2019-10-09 | XMS | Encounter Summary ---
Demographics + + + | Address | [address] | | | [place] [address] | + + + | Home Phone | | + + + | Preferred Language | Unknown | + + + | Marital Status | | + + + | Faith Affiliation | Unknown | + + + | Race | Unknown | + + + | Ethnic Group | Unknown | + + + Author + + + | Author | [facility] | | | and [place] | + + + | Organization | [facility] | | [...] Team Providers + +------+ + | Care Press Brake Operator Name | Role | Phone | + +------+ + | Santy Kyle MD | PCP | | + +------+ + Encounter Details +--------+ + + + + | Date | Type | Department | Care Team | Description | +--------+ + + + + | 02/18/ | Hospital | [facility] [place] [facility] | Conversion | Pain | | 2016 | Encounter | CONVERSION [address] | Transaction, | | | | | [address] | Provider Unknown | | | | | [place], [place] | [phone] | | | | | [address] | (Fax) | | | | | [phone] | | | +--------+ + + + [...] + + + +---------+ + + | tiZANidine | Take one tablet | | 2 | 10/17/19 | | | (ZANAFLEX) 4 mg | daily | | | 16 | | | tablet | | | | | | + + + +---------+ + + | divalproex | Take 500 mg by mouth | | 0 | | | | (DEPAKOTE) 500 mg EC | 2 times daily. | | | | 0 | | tablet | | [...] | +--------+---------+ + + + | 10/30/ Office | Neurology | Isac Arechiga, | | | 2019 | Visit | | [facility] | | | | | | [address] | | | | | | [place] [address] | | | | | | [phone] | | | | | | | | +--------+---------+ + + + documented as of this encounter Procedures + +--------+ + + + | Procedure Name | Priori | Date/Time | Associated Diagnosis | Comments | | | ty | | | | + +--------+ + + + | MRI BRAIN W WO | Routin | 02/17/2016 | | Results for this | | CONTRAST | e | 11:27 PM | | procedure are in the | | | | PST | | results section. | + +--------+ + + + documented in this encounter Results MRI Brain w wo Contrast (02/17/2016 11:27 PM PST) + + | Specimen | + + | | + + + + + | Narrative | Performed At | + + + | This is a non-reportable procedure without a radiologist report and | | | is used for image storage only | | + + + + + | Procedure Note | + + | Clemente Kennedy - 10/05/2018 6:47 PM PDT This is a non-reportable procedure | | without a radiologist report and isused for image storage only | + + documented in this encounter Visit Diagnoses + + | Diagnosis | + + | Pain Generalized pain | + + documented in this encounter"
--- OUTSIDE RECORDS SUMMARY | ~2019-10-09 | XMS | Encounter Summary ---
Demographics + + + | Address | [address] | | | [place] [address] | + + + | Home Phone | | + + + | Preferred Language | Unknown | + + + | Marital Status | | + + + | Scientologist Affiliation | Unknown | + + + | Race | Unknown | + + + | Ethnic Group | Unknown | + + + Author + + + | Author | [facility] | | | and [place] | + + + | Organization | [facility] | | | [...] Team Providers + +------+ + | Care Chief Media Officer Name | Role | Phone | + +------+ + | No, Unknownpcp | PCP | | + +------+ + Encounter Details +--------+ + + + + | Date | Type | Department | Care Team | Description | +--------+ + + + + | 03/15/ | Hospital | [facility] | Mil Estrada MD | | | 2014 | Encounter | [facility] | [address] | | | | | [facility] [address] | [place], [place] | | | | | [address] [place], | [address] | | | | | [place] [address] | | | | | | [phone] | | | +--------+ + + + [...] | | | | | [place] [address] | | | | | | [phone] | | | | | | | | +--------+---------+ + + + documented as of this encounter Visit Diagnoses Not on filedocumented in this encounter"
--- OUTSIDE RECORDS SUMMARY | ~2019-10-09 | XMS | Encounter Summary ---
Demographics + + + | Address | [address] | | | [place] [address] | + + + | Home Phone | | + + + | Preferred Language | Unknown | + + + | Marital Status | Single | + + + | Uatsdin Affiliation | Unknown | + + + | Race | White | + + + | Ethnic Group | Other Race | + + + Author + + + | Author | [facility] | + + + | Organization | [facility] | + + + | Address | Unknown | + + + | Phone | Unavailable | + + + Support + + +---------+ + | Name | Relationship | Address | Phone | + + +---------+ + | Alethea Contreras | ECON | Unknown | | + + +---------+ + Care Team Providers + +------+ + | Care Production Boring Machine Operator Name | Role | Phone | [...] | | | unusual | CLINIC | [facility] | | | | | movement | NEUROLOGY | for Health | | | | | disorder | [address] | and Healing, | | | | | | [address] | [address], | | | | | | [place], [place] | 8th Floor | | | | | | [address] | [place], [place] | | | | | | Phone: | [address] | | | | | | [phone] | Phone: | | | | | | Fax: | [phone] | | | | | | [phone] | Fax: | | | | | | | [phone] | +--------+--------+ + + + + Encounter Details +--------+---------+ + + + | Date | Type | Department | Care Team | Description | +--------+---------+ + + + | 01/16/ | Office | Neurology at | Mika Jason MD | 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 Non-smoker, rare etoh, rare MJ PE: Vital [...] with an appropriate PT referral in the [place] area. 2) the benefits of psychiatric intervention [...]
--- OUTSIDE RECORDS SUMMARY | ~2019-10-09 | XMS | Encounter Summary ---
Demographics + + + | Address | [address] | | | [place] [address] | + + + | Home Phone | | + + + | Preferred Language | Unknown | + + + | Marital Status | Single | + + + | Buddhist Affiliation | Unknown | + + + | Race | White | + + + | Ethnic Group | Other Race | + + + Author + + + | Author | [facility] | + + + | Organization | [facility] | + + + | Address | Unknown | + + + | Phone | Unavailable | + + + Support + + +---------+ + | Name | Relationship | Address | Phone | + + +---------+ + | Alethea Contreras | ECON | Unknown | | + + +---------+ + Care Team Providers + +------+ + | Care Interactive Digital Media Specialist Name | Role | Phone | + [...] at | | | | | | [facility] | | | | | | and Healing [address] | | | | | [address] [facility] for | | | | | | Health and Healing, | | | | | | Building | | | | | | Floor [place], [place] | | | | | | [address] | | | | | | [phone] | | | +--------+ + + + [...]
--- OUTSIDE RECORDS SUMMARY | ~2019-10-09 | XMS | Encounter Summary ---
Demographics + + + | Address | [address] | | | [place] [address] | + + + | Home Phone | | + + + | Preferred Language | Unknown | + + + | Marital Status | | + + + | Christianity Affiliation | Unknown | + + + | Race | Unknown | + + + | Ethnic Group | Unknown | + + + Author + + + | Author | [facility] | | | and [place] | + + + | Organization | [facility] | | [...] Team Providers + +------+ + | Care Collar Cutter Name | Role | Phone | + +------+ + | Santy Kyle MD | PCP | | + +------+ + Encounter Details +--------+ + + + + | Date | Type | Department | Care Team | Description | +--------+ + + + + | 11/30/ | Orders Only | [facility] | Galilea YinJohanneChacho, | | | 2016 | | [address] | MD [address] | | | | | [place], [place] | [address] | | | | | [address] | [place] [address] | | | | | [phone] | [phone] | | | | | | | [...] D | | | | | | [place] [address] | | | | | | [phone] | | | | | | | | +--------+---------+ + + + documented as of this encounter Procedures + +--------+ + + + | Procedure Name | Priori | Date/Time | Associated Diagnosis | Comments | | | ty | | | | + +--------+ + + + | ACETYLCHOLINE | Routin | 12/01/2015 | | Results for this | | RECEPTOR AB, BINDING | e | 10:12 AM | | procedure are in the | | | | PDT | | results section. | + +--------+ + + + documented in this encounter Results Acetylcholine Receptor Ab, Binding (12/01/2015 10:12 AM PDT) + + + + + + | Component | Value | Ref Range | Performed | Pathologist | | | | | At | Signature | + + + + + + | Acetylcholi | <0.30Comment: REFERENCE | nmol/L | EXTERNAL | | | ne Rec. | RANGES FOR ACETYLCHOLINE | | LAB | | | Binding AB | RECEPTOR BINDING | | | | | | ANTIBODY:NEGATIVE: < [place] | | | | | | =0.30 NMOL/LEQUIVOCAL: | | | | | | 0.31-0.49 | | | | | | NMOL/LPOSITIVE: > [place] | | | | | | =0.50 NMOL/L | | | | + + + + + + + + | Specimen | + + | Blood specimen | | (specimen) | + + + +---------+ + + | Performing | Address | City/State/Zipcode | Phone Number | | Organization | | | | + +---------+ + + | EXTERNAL LAB | | | | + +---------+ + + documented in this encounter Visit Diagnoses Not on filedocumented in this encounter"
--- OUTSIDE RECORDS SUMMARY | ~2019-10-09 | XMS | Encounter Summary ---
Demographics + + + | Address | [address] | | | [place] [address] | + + + | Home Phone | | + + + | Preferred Language | Unknown | + + + | Marital Status | | + + + | Amish Affiliation | Unknown | + + + | Race | Unknown | + + + | Ethnic Group | Unknown | + + + Author + + + | Author | [facility] | | | and [place] | + + + | Organization | [facility] | | [...] Team Providers + +------+ + | Care Overhead Cleaner Name | Role | Phone | + +------+ + PCP | Unavailable | + +------+ + Encounter Details +--------+ + + + + | Date | Type | Department | Care Team | Description | +--------+ + + + + | 09/13/ | Abstract | [place] [facility] | [facility]IGRATION [facility] | | | 2011 | | Conversion Location | SR | | | | | [address] [facility] | | | | | | [place], [place] | | | | | | [address] | | | | | | [phone] | | | +--------+ + + + [...] + + + | Blood Pressure | 136/86 | 11/16/2010 12:00 AM | | | | | PDT | | + + + + + | Pulse | - | - | | + + + + + | Temperature | - | - | | + + + + + | Respiratory Rate | - | - | | + + + + + | Oxygen Saturation | - | - | | + + + + + | Inhaled Oxygen | - | - | | | Concentration | | | | + + + + + | Weight | 98 kg (216 lb) | 11/16/2010 12:00 AM | | | | | PDT | | + + + + + | Height | 185.4 cm (6' 1") | 04/02/2010 12:00 AM | | | | | PST | | + + + + + | Body Mass Index | 28.5 | 04/02/2010 12:00 AM | | | | | PST | | + + + + + documented in this encounter Plan of Treatment +--------+---------+ + + + | Date | Type | Specialty | Care Team | Description | +--------+---------+ + + + | 10/30/ | Office | Neurology | Isac Arechiga, | | | 2019 | Visit | | [facility] | | | | | | [address] | | | | | | [place] [address] | | | | | | [phone] | | | | | | | | +--------+---------+ + + + documented as of this encounter Visit Diagnoses Not on filedocumented in this encounter
--- OUTSIDE RECORDS SUMMARY | ~2019-10-09 | XMS | Encounter Summary ---
Demographics + + + | Address | [address] | | | [place] [address] | + + + | Home Phone | | + + + | Preferred Language | Unknown | + + + | Marital Status | Single | + + + | Temple Affiliation | Unknown | + + + | Race | White | + + + | Ethnic Group | Other Race | + + + Author + + + | Author | [facility] | + + + | Organization | [facility] | + + + | Address | Unknown | + + + | Phone | Unavailable | + + + Support + + +---------+ + | Name | Relationship | Address | Phone | + + +---------+ + | Alethea Contreras | ECON | Unknown | | + + +---------+ + Care Team Providers + +------+ + | Care Supervisor Shop Name | Role | Phone | + +------+ + | Santy Kyle MD | PCP | | + +------+ + Encounter Details +--------+ + + + + | Date | Type | Department | Care Team | Description | +--------+ + + + + | 05/11/ | Hospital | Dermatopathology | | | | 2015 | Encounter | [address] | | | | | | Mailcode: [id number] | | | | | | [facility] | | | | | | and Healing, | | | | | | [address], [address]th | | | | | | Floor [place], [place] | | | | | | [address] | | | | | | [phone] | | | +--------+ + + + [...] at Time of Discharge + + + +---------+--------+ + | Medication | Sig | Dispensed | Refills | Start | End Date | | | | | | Date | | + + + +---------+--------+ + | diphenhydrAMINE | 4-5 times daily as | | 0 | | | | (BENADRYL) 25 mg | needed. | | | | | | oral capsule | | | | | | + + + +---------+--------+ + | divalproex DR | Take 500 mg by mouth | | 0 | | | | (DEPAKOTE) 500 mg | two times daily. | | | | | | oral tablet,delayed | | | | | | | release (DR/EC) | | | | | | + + + +---------+--------+ + | FLUoxetine 10 mg | Take 10 mg by mouth | | 0 | | | | oral tablet | once daily. | | | | | + + + +---------+--------+ + | | Take 1 tablet by | | 0 | | | | HYDROcodone-acetamin | mouth as needed. Not | | | | | | ophen 10-325 mg oral | to exceed 10 | | | | | | tablet [...] hour period.) | | | | | + + + +---------+--------+ + | lamoTRIgine | Take 150 mg by mouth | | 0 | | | | (LAMICTAL) 150 mg | two times daily. | | | | | | oral tablet | | | | | | + + + +---------+--------+ + | naproxen 500 mg | Take 500 mg by mouth | | 0 | | | | oral tablet | two times daily. | | | | | + + + +---------+--------+ + | SUMAtriptan 6 | Inject 1 kit under | | 0 | | | | mg/0.5 mL | the skin (SUBC) as | | | | | | subcutaneous Pen | needed. A second | | | | | | Injector [...] hour period. | | | | | + + + +---------+--------+ + | topiramate 100 mg | Take 100 mg by mouth | | 0 | | | | oral tablet | two times daily. | | | | | + + + +---------+--------+ + documented as of this encounter Plan of Treatment Not on filedocumented as of this encounter Procedures + +--------+ + + + | Procedure Name | Priori | Date/Time | Associated Diagnosis | Comments | | | ty | | | | + +--------+ + + + | DERM PATHOLOGY | Routin | 05/12/2015 | | Results for this | | | e | | | procedure are in the | | | | | | results section. | + +--------+ + + + documented in this encounter Results DERM PATHOLOGY (05/12/2015) + + + + + + | Component | Value | Ref Range | Performed | Pathologist | | | | | At | Signature | + + + + + + | DERMATOPATH | SOURCE OF SPECIMEN:A Rt. | | [facility] | | | OLOGY(WET | lateral canthus, shave | | DERMATOPATH | | | MNT) | biopsy CLINICAL | | OLOGY | | | | DESCRIPTION:3 mm r/o | | | | | | inflamed acrochordon. | | | | | | GROSS | | | | | | DESCRIPTION:Received in | | | | | | formalin is a specimen | | | | | | labeled Diane, | | | | | | Gera:A: Specimen is | | | | | | labeled with the biopsy | | | | | | site and consists of an | | | | | | irregularshave of | | | | | | papular rapp-hart skin, | | | | | | [id number]. The surgical | | | | | | margin is inkedblack; | | | | | | the tissue is bisected, | | | | | | and entirely submitted | | | | | | in cassette A1. | | | | | | MICROSCOPIC | | | | | | DESCRIPTION:There is a | | | | | | polypoid lesion with a | | | | | | central fibrous | | | | | | connective tissue | | | | | | corecovered by a normal | | | | | | to hyperplastic | | | | | | epidermis. | | | | | | DIAGNOSIS:FIBROEPITHELIA | | | | | | L POLYP / ACROCHORDON. | | | | | | VBK:mm3// | | | | | | My electronic | | | | | | signature indicates that | | | | | | I have personally | | | | | | reviewed alldiagnostic | | | | | | slides, the gross and/or | | | | | | microscopic portion of | | | | | | thisreport and | | | | | | formulated the final | | | | | | diagnosis. | | | | | | Rendering Diagnostician: | | | | | | Yareli Corrigan | | | | | | MDaxaPathologistMickyi | | | | | | benito Signed 05/18/2015 | | | | | | 6:57PM | | | | + + + + + + + + | Specimen | + + | | + + + + + | Narrative | Performed At | + + + | | | + + + + + + + + | Performing | Address | City/State/Zipcode | Phone Number | | Organization | | | | + + + + + | [facility] | [address] | [place] [address] | | | DERMATOPATHOLOGY | [address] | | | + + + + + | [facility] | Mailcode [address] | [place] [address] | | | DERMATOPATHOLOGY | [address] | | | + + + + + documented in this encounter Visit Diagnoses Not on filedocumented in this encounter"
--- OUTSIDE RECORDS SUMMARY | ~2019-10-09 | XMS | Encounter Summary ---
Demographics + + + | Address | [address] | | | [place] [address] | + + + | Home Phone | | + + + | Preferred Language | Unknown | + + + | Marital Status | | + + + | Shinto Affiliation | Unknown | + + + | Race | Unknown | + + + | Ethnic Group | Unknown | + + + Author + + + | Author | [facility] | | | and [place] | + + + | Organization | [facility] | | | [...] Team Providers + +------+ + | Care Underwriting Sales Representative Name | Role | Phone | + +------+ + | No, Unknownpcp | PCP | | + +------+ + Encounter Details +--------+ + + + + | Date | Type | Department | Care Team | Description | +--------+ + + + + | 03/15/ | Hospital | [facility] | Mil Estrada MD | | | 2013 | Encounter | [facility]PITAL [facility] | [address] | | | | | [address] [place] | [place], [place] | | | | | [place], [place] | [address] | | | | | [address] | | | | | | [phone] | | | +--------+ + + + [...] | 10/30/ | Office | Neurology | Mateuszmarkell Isac, | | | 2019 | Visit | | [facility] | | | | | | [address] | | | | | | [place] [address] | | | | | | [phone] | | | | | | | | +--------+---------+ + + + documented as of this encounter Procedures + +--------+ + + + | Procedure Name | Priori | Date/Time | Associated Diagnosis | Comments | | | ty | | | | + +--------+ + + + | VITAMIN B-12 | Routin | 03/15/2013 | | Results for this | | | e | 12:42 PM | | procedure are in the | | | | PST | | results section. | + +--------+ + + + | CBC W/AUTO | Routin | 03/15/2013 | | Results for this | | DIFFERENTIAL | e | 12:42 PM | | procedure are in the | | | | PST | | results section. | + +--------+ + + + | SEDIMENTATION RATE | Routin | 03/15/2013 | | Results for this | | | e | 12:42 PM | | procedure are in the | | | | PST | | results section. | + +--------+ + + + | COMPREHENSIVE | Routin | 03/15/2013 | | Results for this | | METABOLIC PANEL | e | 12:42 PM | | procedure are in the | | | | PST | | results section. | + +--------+ + + + documented in this encounter Results Vitamin B-12 (03/15/2013 12:42 PM PST) + +-------+ + + + | Component | Value | Ref Range | Performed | Pathologist | | | | | At | Signature | + +-------+ + + + | VITAMIN | 820 | 239 - 931 pg/mL | EXTERNAL | | | B-12 | | | LAB | | + +-------+ + + + + + | Specimen | + + | | + + + +---------+ + + | Performing | Address | City/State/Zipcode | Phone Number | | Organization | | | | + +---------+ + + | EXTERNAL LAB | | | | + +---------+ + + Sedimentation Rate (03/15/2013 12:42 PM PST) + +-------+ + + + | Component | Value | Ref Range | Performed | Pathologist | | | | | At | Signature | + +-------+ + + + | Erythrocyte | 10 | <=20 mm/h | EXTERNAL | | | | | | LAB | | | Sedimentati | | | | | | on Rate | | | | | + +-------+ + + + + + | Specimen | + + | | + + + +---------+ + + | Performing | Address | City/State/Zipcode | Phone Number | | Organization | | | | + +---------+ + + | EXTERNAL LAB | | | | + +---------+ + + Comprehensive Metabolic Panel (03/15/2013 12:42 PM PST) + +-------+ + + + | Component | Value | Ref Range | Performed | Pathologist | | | | | At | Signature | + +-------+ + + + | Sodium | 143 | 132 - 143 | EXTERNAL | | | | | mmol/L | LAB | | + +-------+ + + + | Potassium | 3.7 | 3.3 - 4.9 | EXTERNAL | | | | | mmol/L | LAB | | + +-------+ + + + | Cl | 106 | 95 - 108 mmol/L | EXTERNAL | | | | | | LAB | | + +-------+ + + + | CO2 | 27 | 23 - 34 mmol/L | EXTERNAL | | | | | | LAB | | + +-------+ + + + | Anion Gap | 10 | 7 - 16 | EXTERNAL | | | | | | LAB | | + +-------+ + + + | Calcium | 8.7 | 8.3 - 10.0 | EXTERNAL | | | | | mg/dL | LAB | | + +-------+ + + + | Glucose | 84 | 70 - 110 mg/dL | EXTERNAL | | | | | | LAB | | + +-------+ + + + | BUN, Bld | 18 | 5 - 26 mg/dL | EXTERNAL | | | | | | LAB | | + +-------+ + + + | Creatinine | 1 | 0.7 - 1.4 mg/dL | EXTERNAL | | | | | | LAB | | + +-------+ + + + | BUN/Creatin | 18 | 7.0 - 24.0 | EXTERNAL | | | ine Ratio | | RATIO | LAB | | + +-------+ + + + | Bilirubin, | 0.3 | <=1.2 mg/dL | EXTERNAL | | | Total | | | LAB | | + +-------+ + + + | Protein, | 7.5 | 6.6 - 8.5 g/dL | EXTERNAL | | | Total | | | LAB | | + +-------+ + + + | Albumin | 4.3 | 3.0 - 4.5 g/dL | EXTERNAL | | | | | | LAB | | + +-------+ + + + | Alkaline | 70 | 33 - 151 U/L | EXTERNAL | | | Phosphatase | | | LAB | | + +-------+ + + + | ALT, | 49 | 18 - 63 U/L | EXTERNAL | | | External | | | LAB | | + +-------+ + + + | AST, | 24 | <=38 U/L | EXTERNAL | | | External | | | LAB | | + +-------+ + + + + + | Specimen | + + | | + + + +---------+ + + | Performing | Address | City/State/Zipcode | Phone Number | | Organization | | | | + +---------+ + + | EXTERNAL LAB | | | | + +---------+ + + CBC w/ Auto Differential (03/15/2013 12:42 PM PST) + +-------+ + + + | Component | Value | Ref Range | Performed | Pathologist | | | | | At | Signature | + +-------+ + + + | WBC | 5.8 | 4.6 - 10.5 | EXTERNAL | | | | | 1000/mm3 | LAB | | + +-------+ + + + | RBC | 4.47 | 4.36 - 5.83 | EXTERNAL | | | | | mil/mm3 | LAB | | + +-------+ + + + | HGB, | 14.6 | 13.1 - 17.4 | EXTERNAL | | | External | | g/dL | LAB | | + +-------+ + + + | HCT, | 41.8 | 39.0 - 51.9 % | EXTERNAL | | | External | | | LAB | | + +-------+ + + + | MCV | 94 | 82 - 96 fl | EXTERNAL | | | | | | LAB | | + +-------+ + + + | MCH | 32.7 | 27.7 - 32.3 pg | EXTERNAL | | | | | | LAB | | + +-------+ + + + | MCHC | 34.9 | 32.0 - 36.9 % | EXTERNAL | | | | | | LAB | | + +-------+ + + + | RDW-CV | 13.1 | <=17.0 % | EXTERNAL | | | | | | LAB | | + +-------+ + + + | Platelet | 168 | 150 - 450 | EXTERNAL | | | Count | | 1000/mm3 | LAB | | | Plasma | | | | | + +-------+ + + + | MPV | 9.3 | 9.4 - 12.4 FL | EXTERNAL | | | | | | LAB | | + +-------+ + + + | % Segmented | 61.7 | 42.0 - 76.0 % | EXTERNAL | | | | | | LAB | | | Neutrophils | | | | | + +-------+ + + + | LYMPH % | 27.8 | 29.0 - 49.0 % | EXTERNAL | | | | | | LAB | | + +-------+ + + + | % Monocytes | 10.5 | <=12.0 % | EXTERNAL | | | | | | LAB | | + +-------+ + + + | Absolute | 3.6 | 2.80 - 7.70 | EXTERNAL | | | Neutrophils | | 1000/mm3 | LAB | | + +-------+ + + + | Absolute | 1.6 | 1.20 - 3.30 | EXTERNAL | | | Lymphocytes | | 1000/mm3 | LAB | | + +-------+ + + + | Absolute | 0.6 | <=1.26 1000/mm3 | EXTERNAL | | | Monocytes | | | LAB | | + +-------+ + + + | SLIDE | NO | | EXTERNAL | | | REVIEW | | | LAB | | + +-------+ + + + + + | Specimen | + + | | + + + +---------+ + + | Performing | Address | City/State/Zipcode | Phone Number | | Organization | | | | + +---------+ + + | EXTERNAL LAB | | | | + +---------+ + + documented in this encounter Visit Diagnoses Not on filedocumented in this encounter"
--- OUTSIDE RECORDS SUMMARY | ~2019-10-09 | XMS | Encounter Summary ---
Demographics + + + | Address | [address] | | | [place] [address] | + + + | Home Phone | | + + + | Preferred Language | Unknown | + + + | Marital Status | | + + + | Synagogue Affiliation | Unknown | + + + | Race | Unknown | + + + | Ethnic Group | Unknown | + + + Author + + + | Author | [facility] | | | and [place] | + + + | Organization | [facility] | | [...] Team Providers + +------+ + | Care Featherer Name | Role | Phone | + +------+ + | No, Unknownpcp | PCP | | + +------+ + Encounter Details +--------+ + + + + | Date | Type | Department | Care Team | Description | +--------+ + + + + | 03/20/ | Hospital | [facility] | Mil Hernadez MD | | | 2014 | Encounter | HOSPITAL RESP[facility]ATORY | [address] | | | | | THERAPY [address] | [place] | | | | | [place] | [address] | | | | | [address] | | | | | | [phone] | | | +--------+ + + + [...] + + documented as of this encounter Progress Mil Eaton 03/20/2013 9:13 AM [facility] Dictating Practitioner: MIL HERNADEZ MD Patient Name: GERA CONTRERAS Patient Date of : 1955 Visit Number: [id number] ELECTROENCEPHALOGRAM Date of Service: 03/20/2013. Mr. 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 The background rhythm consists of 8 to 10 hertz of moderate to high voltage activity consisting mostly of alpha rhythm seen posteriorly. There were some amount of muscle and eye movement artifact noted throughout the EEG. There were no evidence of any paroxysmal activity or focal abnormalities noted. Drowsiness produced some generalized slowing consisting mostly of 5 to 6 hertz. Photic stimulation were performed demonstrating an adequate photic driving response. IMPRESSION: Normal awake and drowsy EEG for age. There were no evidence of any epileptiform discharges. If clinically indicated a 24-hour ambulatory EEG versus inpatient video monitoring could be performed to determine any seizure activity. CC: Santy Kyle MD [email or web address] / [id number] Dictation Date/Time: March 21, 2013 07:45AM Embedded Software Programmer Date/Time: March 22, 2013 07:26AM Authenticated and Edited by Mil Hernadez MD On 03/22/13 11:45:58 AM [facility] Signed and Approved by: MIL HERNADEZ MD 03/22/2013 11:45:00 documented in this encount er Plan of Treatment +--------+---------+ + + + | Date | Type | Specialty | Care Team | Description | +--------+---------+ + + + | 10/30/ | Office | Neurology | Isac Arechiga, | | | 2019 | Visit | | [facility] | | | | | | [address] | | | | | | [place] [address] | | | | | | [phone] | | | | | | | | +--------+---------+ + + + documented as of this encounter Visit Diagnoses Not on filedocumented in this encounter"
--- OUTSIDE RECORDS SUMMARY | ~2019-10-09 | XMS | Encounter Summary ---
Demographics + + + | Address | [address] | | | [place] [address] | + + + | Home Phone | | + + + | Preferred Language | Unknown | + + + | Marital Status | Single | + + + | Shinto Affiliation | Unknown | + + + | Race | White | + + + | Ethnic Group | Other Race | + + + Author + + + | Author | [facility] | + + + | Organization | [facility] | + + + | Address | Unknown | + + + | Phone | Unavailable | + + + Support + + +---------+ + | Name | Relationship | Address | Phone | + + +---------+ + | Alethea Contreras | ECON | Unknown | | + + +---------+ + Care Team Providers + +------+ + | Care Principal Data Architect Name | Role | Phone | + +------+ + | Santy Kyle MD | PCP | | + +------+ + Encounter Details +--------+ + + + + | Date | Type | Department | Care Team | Description | +--------+ + + + + | 04/13/ | Document-Sc | UNKNOWN DEPARTMENT | Unknown . | | | 2011 | anned | [address] | | | | | | [address] | | | | | | [place], [place] | | | | | | [address] | | | +--------+ + + + [...] | + +--------+ + + + | RADIOLOGY | | 04/13/2011 | | Results for this | | | | 12:00 AM | | procedure are in the | | | | PST | | results section. | + +--------+ + + + documented in this encounter Results RADIOLOGY (04/13/2011 12:00 AM PST) + + + | Narrative | Performed At | + + + | | | | | | + + + + + | Procedure Note | + + | James Goode - 01/25/2013 6:46 AM PST | + + documented in this encounter Visit Diagnoses Not on filedocumented in this encounter"
--- OUTSIDE RECORDS SUMMARY | ~2019-10-09 | XMS | Encounter Summary ---
Demographics + + + | Address | [address] | | | [place] [address] | + + + | Home Phone | | + + + | Preferred Language | Unknown | + + + | Marital Status | | + + + | Congregation Affiliation | Unknown | + + + | Race | Unknown | + + + | Ethnic Group | Unknown | + + + Author + + + | Author | [facility] | | | and [place] | + + + | Organization | [facility] | | | and [...] Team Providers + +------+ + | Care Audio Visual Aids Director Name | Role | Phone | + +------+ + | Santy Kyle MD | PCP | | + +------+ + Reason for Visit +--------+ + | Reason | Comments | +--------+ + | Other | No Show | +--------+ + Encounter Details +--------+ + + + + | Date | Type | Department | Care Team | Description | +--------+ + + + + | 12/07/ | Documentati | [facility] | Ludwig Ma, | Other (No Show ) | | 2019 | on | NEUROLOGY [address] | [facility] [facility] | | | | | [address] | | | | | | [place] | | | | | | [address] | | | | | | [phone] | | | +--------+ + + + [...] + documented as of this encounter Progress Notes Ludwig Ma CMA - 12/07/2018 4:30 PM PDTPatient no show to todays appointment. A lette r will be sent out. doc umjeanna in this encounter Plan of Treatment +--------+---------+ + + + | Date | Type | Specialty | Care Team | Description | +--------+---------+ + + + | 10/30/ | Office | Neurology | Isac Arechiga, | | | 2019 | Visit | | [facility] | | | | | | [address] | | | | | | [place] [address] | | | | | | [phone] | | | | | | | | +--------+---------+ + + + documented as of this encounter Visit Diagnoses Not on filedocumented in this encounter"
--- OUTSIDE RECORDS SUMMARY | ~2019-10-09 | XMS | Encounter Summary ---
Demographics + + + | Address | [address] | | | [place] [address] | + + + | Home Phone | | + + + | Preferred Language | Unknown | + + + | Marital Status | | + + + | Gnosticist Affiliation | Unknown | + + + | Race | Unknown | + + + | Ethnic Group | Unknown | + + + Author + + + | Author | [facility] | | | and [place] | + + + | Organization | [facility] | | [...] Team Providers + +------+ + | Care Laboratory Inspector Name | Role | Phone | + +------+ + | No, Unknownpcp | PCP | | + +------+ + Reason for Visit + + + | Reason | Comments | + + + | Follow-up | | + + + Encounter Details +--------+---------+ + + + | Date | Type | Department | Care Team | Description | +--------+---------+ + + + | 02/24/ | Office | [facility] [place] | Femi Morales, | SCOOBY (obstructive | | 2012 | Visit | PULMONARY [address] | MD [address] | sleep apnea) | | | | [place], | [place] | (Primary Dx) | | | | [place] [address] | [address] | | | | | [phone] | | | +--------+---------+ + + + [...] + + + | Blood Pressure | 120/70 | 02/25/2012 1:00 PM | | | | | PST | | + + + + + | Pulse | 42 | 02/25/2012 1:00 PM | | | | | PST | | + + + + + | Temperature | - | - | | + + + + + | Respiratory Rate | - | - | | + + + + + | Oxygen Saturation | 97% | 02/25/2012 1:00 PM | | | | | PST | | + + + + + | Inhaled Oxygen | - | - | | | Concentration | | | | + + + + + | Weight | 95.6 kg (210 lb 11.2 | 02/25/2012 1:00 PM | | | | oz) | PST | | + + + + + | Height | 185.4 cm (6' 1") | 02/25/2012 1:00 PM | | | | | PST | | + + + + + | Body Mass Index | 27.8 | 02/25/2012 1:00 PM | | | | | PST | | + + + + + documented in this encounter Patient Instructions Patient Instructions Femi Morales MD - 02/25/2012 1:20 PM PSTContinue to use CPAP ni melissa. Please call if fatigue or napping further increase. documented in this encounter Progress Notes Femi Morales MD - 02/25/2012 1:12 PM PSTFormatting of this note might be different f rom the original. Sleep Follow Up HPI Gera Contreras is a 57 y.o. male patient of Dr. Kyle here today for follow up of obstr uctive sleep apnea. He notes that they have been wearing their CPAP 7-7.5 hrs per day and 7 days per week. The ir compliance has been good. They are not having issues with their CPAP machine such as the sensation of excessive pressure or a poorly fitting mask. They feel like they are more rest ed since starting on CPAP. They are napping 1-2 times per weekend. They are not having nasal congestion. They have the humidity on the machine set at 6. He typically goes to bed at 11 PM and rises in the morning to start the day at6 AM. He cindi mates that it takes <5 minutes to fall asleep. They typically have nocturia or other nightt yokasta awakenings 2-3 times a night and he usually gets back to sleep easily. He has has replaced their CPAP machine and mask or tubing in the last year. No denies lightheadedness or fatigue. His weight is down 5 pounds and 3 ounces since our l ast clinic appointment approximately 15 months ago. His denies snoring while he wears CPAP. The patient wears CPAP even with naps. Past Medical History Past Medical History Diagnosis Date Kidney stone 1987 Dystonia GERD (gastroesophageal reflux disease) Allergic rhinitis Sleep apnea 2008 AHI 33.9, 82%, CPAP 7 Anxiety associated with depression Migraine headache Bipolar disorder 2003 Concussion 1976 H/O cervical fracture 1976 C4-5-6 Piriformis syndrome Ischial pain 12/10 Right ischial tuberostiy and rectu femoris pain w/a right femur x-ray showing a 1.5 to 2 capsule density Allergies: No Known Allergies Medications: Current outpatient prescriptions:FLUoxetine (PROZAC) 20 mg capsule, Take 20 mg by mouth Gina ly., Disp: , Rfl: ; nadolol (CORGARD) 40 mg tablet, Take 40 mg by mouth Daily., Disp: , Rfl : ; HYDROcodone-acetaminophen (NORCO) 10-325 mg per tablet, 1 3-4 TIMES A DAY NEEDED, Di sp: , Rfl: ; SUMAtriptan (IMITREX) 50 mg tablet, Take 50 mg by mouth as needed., Disp: , Rf l: divalproex (DEPAKOTE) 500 mg EC tablet, 2 tablets by mouth at bedtime, Disp: , Rfl: ; lamo trigine (LAMICTAL) 150 MG tablet, Take 150 mg by mouth 2 times daily., Disp: , Rfl: Review of Systems Constitutional: Denies fever, chills, [...] urticaria, allergic rash, hay fever. Objective BP 120/70 | Pulse 42 | Ht 1.854 m (6' 1") | Wt 95.573 kg (210 lb 11.2 oz) | BMI 27.80 kg/m2 | SpO2 97% Appearance: Alert, cooperative, no distress, appears stated [...] and supraclavicular nodes normal Neurologic: Gait normal Dates: 09/21/11 through 12/19/11 Patient used CPAP for 85 and 90 days. His median usage was 7 hours and 34 minutes. The CP AP pressure is set at 6 cm H2O. Assessment 1. Obstructive sleep apnea-Gera is a 57-year-old male with known moderate obstructive s leep apnea. Specifically the patient's AHI is known to be 33.9 with oxygen desaturation oswadlo n to 82%. From a CPAP compliance report it appears that Mr. Chan is CPAP pressure is set at 6 cm H2O. The patient is using CPAP for 94% of the night. He is averaging 7 and half hours a night. Mr. Romo was counseled regarding symptoms to monitor which would indicate suboptimal jorge tment of SCOOBY. Plan 1. No change in the patient's CPAP pressure. 2. Annual pulmonary clinic followup is recommended. 3. Patient's heart rate was noted to be approximately 50 today. Edenilson has a normal blood p ressure and is otherwise asymptomatic. I suggested to Mr. Contreras that he discuss things fu rther with Dr. Kyle. documented in this encounter Plan of Treatment +--------+---------+ + + + | Date | Type | Specialty | Care Team | Description | +--------+---------+ + + + | 10/30/ | Office | Neurology | Isac Arechiga, | | | 2019 | Visit | | [facility] | | | | | | [facility] [address] | | | | | | [place] [address] | | | | | | [phone] | | | | | | | | +--------+---------+ + + + documented as of this encounter Visit Diagnoses + + | Diagnosis | + + | SCOOBY (obstructive sleep apnea) - Primary Obstructive sleep apnea (adult) (pediatric) | + + documented in this encounter
--- OUTSIDE RECORDS SUMMARY | ~2019-10-09 | XMS | Encounter Summary ---
Demographics + + + | Address | [address] | | | [place] [address] | + + + | Home Phone | | + + + | Preferred Language | Unknown | + + + | Marital Status | Single | + + + | Nondenominational Affiliation | Unknown | + + + | Race | White | + + + | Ethnic Group | Other Race | + + + Author + + + | Author | [facility] | + + + | Organization | [facility] | + + + | Address | Unknown | + + + | Phone | Unavailable | + + + Support + + +---------+ + | Name | Relationship | Address | Phone | + + +---------+ + | Alethea Contreras | ECON | Unknown | | + + +---------+ + Care Team Providers + +------+ + | Care Material Specialist Name | Role | Phone | + +------+ + | Santy Kyel MD | PCP | | + +------+ + Encounter Details +--------+ + + + + | Date | Type | Department | Care Team | Description | +--------+ + + + + | 07/16/ | Abstract | Neurology at | Clinic, Neurology | | | 2016 | | [facility] & | | | | | | Healing [address] | | | | | | [facility] | | | | | | [facility], | | | | | | Building | | | | | | [place], [place] | | | | | | [address] | | | | | | [phone] | | | +--------+ + + + [...]
--- OUTSIDE RECORDS SUMMARY | ~2019-10-09 | XMS | Encounter Summary ---
Demographics + + + | Address | [address] | | | [place] [address] | + + + | Home Phone | | + + + | Preferred Language | Unknown | + + + | Marital Status | | + + + | Sikhism Affiliation | Unknown | + + + | Race | Unknown | + + + | Ethnic Group | Unknown | + + + Author + + + | Author | [facility] | | | and [place] | + + + | Organization | [facility] | | | and [...] Team Providers + +------+ + | Care Central Office Operator Supervisor Name | Role | Phone | + +------+ + | Santy Kyle MD | PCP | | + +------+ + Reason for Visit + + + | Reason | Comments | + + + | Follow-up | 3-4 month migraine follow up | + + + Encounter Details +--------+---------+ + + + | Date | Type | Department | Care Team | Description | +--------+---------+ + + + | 08/07/ | Office | [facility] | Isac Arechiga, | Chronic migraine | | 2020 | Visit | NEUROLOGY [address] | [address] | without aura without | | | | [address] | [address] | status migrainosus, | | | | [place], [place] | [place] [address] | not intractable | | | | [address] | [phone] | (Primary Dx); | | | | [phone] | | Medication overuse | | | | | | headache | +--------+---------+ + + + Social History [...] + + + | Blood Pressure | 123/75 | 08/08/2019 3:42 PM | | | | | PDT | | + + + + + | Pulse | 60 | 08/08/2019 3:42 PM | | | | | PDT | | + + + + + | Temperature | 36.9 C (98.5 F) | 08/08/2019 3:42 PM | | | | | PDT | | + + + + + | Respiratory Rate | - | - | | + + + + + | Oxygen Saturation | 97% | 08/08/2019 3:42 PM | | | | | PDT | | + + + + + | Inhaled Oxygen | - | - | | | Concentration | | | | + + + + + | Weight | 94.5 kg (208 lb 6.4 | 08/08/2019 3:42 PM | | | | oz) | PDT | | + + + + + | Height | 182.9 cm (6') | 08/08/2019 3:42 PM | | | | | PDT | | + + + + + | Body Mass Index | 28.26 | 08/08/2019 3:42 PM | | | | | PDT | | + + + + + documented in this encounter Progress Notes Iasc Arechiga PA-C - 08/08/2019 3:45 PM PDTFormatting of this note might be different fro m the original. Neurologic Progress note Subjective: Patient ID: Gera Contreras is a 64 y.o. male. HPI The patient is seen today for follow up visit for chronic migraine. Last was seen 08/2018. Interval history: He reports he is back to daily headache/migraine. Unchanged features, right sided, focus be hind eye, right side of forehead and side of head. No nausea, vomiting, photophobia/phonophobia. He denies stabbing or jolting headaches typic ally. Denies short duration of headaches, they usually last few hours or more if untreated 7 -15 hours. He has discontinued sumatriptan due to concern for rebound headaches. He is currently drinking coffee, 2 cups in middle of night/early am when the headaches wake him up. He usually is able to go back to sleep after a couple hours. He may do well durin g the day without headache or only mild headache. He is fatigued by end of work day due to sleep interruption for the headaches. He is planned to retire within the next few months hopefully, he works for small [employer], however currently they are short staffed. Summary: He had a couple of appointments and headache clinic in 2017. He discontinued sumatriptan and hydrocodone and used prednisone for several weeks for bridg e therapy for his rebound headaches. Over time the headache frequency and severity improved , however he continued to have frequent migraine about "every other day." reported in early 2017. Over time his headaches gradually ramped back up, increased back to daily headache/mi graine. He retried Botox couple rounds in 2018 without perceived benefit. He had sphenopalatine block 07/09/16 at [facility] without any relief and the procedure was janina te uncomfortable. He was started on multiple supplement regimen since his visit at as well. (B2, magnesium , feverfew, sAME, Boswellia). He has used these intermittently in the last couple years. He started Aimovig since May 2018. He had fluctuations of migraine frequency, improved t o every 2-3 days but at times had stretches of daily headache/migraine. Discontinued Aimovig since later 2018 due to no perceived benefit over time. No new focal neurological symptoms or changes. His prior history is reviewed: He developed migraines initially in his 20's. He had a bout he describes as "cluster headaches" years ago which resolved after a period o f time and the current bout of severe headaches has been ongoing more than a couple years. migraines occur frequently, with variable pain severity. He has bipolar disorder. Daughter has chronic migraine and his mom had migraine. 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 His migraines do impact and cause problem for his work and misses work at times due to migraines. Today he reports pain/headache is 0/10 currently. Headache description: Location: right side starts in right frontal area, aching and throbbing and radiates to rig ht occipital area. Pain is variable up to 10/10. Associated symptoms: Admits nausea with some headaches. No vomiting but admits anorexia. Admits photophobia. No aura. No focal neurological symptoms such as weakness, numbness, vision loss, diplopia, walking/b alance problem, vertigo, speech problem. Admits drooping or closure right eye during severe headache episodes or when he is fatigued. Admits watering right eye during some severe hea daches. Aggravating factors: None. Alleviating factors: sumatriptan oral or injection. No change of migraine features over the years. Current headache frequency: variable, up to twice daily severe headaches. (Headache subside s with sumatriptan but may recur after several hours. The headaches do not subside on their own if they are not treated lasting several hours/day s. Headache duration: hours to days. Previous imaging: MRI brain, [place], [place] approximately [id number], told normal. No report or images to review. MRI brain [facility] 02/17/16 showed white matter lesions, differential including demyel inating disease. No change compared to 02/2013, no enhancing lesions. Preventative medications tried: Topamax helped in past but some cognitive side effects with higher dose. Beta cody with bradycardia side effects (baseline bradycardia). He has be en on gabapentin without clear benefit. Depakote and Lamictal as mood stabilizer. Depako te discontinued. He is on fluoxetine for depression. Restarted Topamax since 10/2015 and ch anged to Topamax XR since late 2016 escalated dose to 150 mg daily XR (uncertain benefit). Aimovig in 2019, initial some improvement, however no sustained benefit over time, disconti nued later 2018. Abortive medications tried: Sumatriptan oral and injection with benefit but takes longer t o work over time. Relpax was effective for a period of time and changed back to sumatriptan . He has difficulty with rebound headaches with sumatriptan. Dexamethasone, reglan, some benefit. Caffeine some benefit. Acetaminophen, NSAIDS (ibuprofen, naproxen) without much benefit. Review of Systems Constitutional: Positive for fatigue. Negative for fever and unexpected weight change. HENT: Negative for rhinorrhea, sore throat and trouble swallowing. Eyes: Negative for photophobia and visual disturbance. Respiratory: Negative for cough and shortness of breath. Cardiovascular: Negative for chest pain and palpitations. Gastrointestinal: Negative for abdominal pain, diarrhea, nausea and vomiting. Musculoskeletal: Positive for back pain. Neurological: Positive for headaches. Negative for dizziness, tremors, seizures, syncope, f acial asymmetry (mild right eylid drooping intermittent), speech difficulty, weakness, light -headedness and numbness. Psychiatric/Behavioral: Positive for dysphoric mood (stable). Objective: BP 123/75 | Pulse 60 | Temp 36.9 C (98.5 F) | Ht 1.829 m (6') | Wt 94.5 kg (208 lb 6.4 oz) | SpO2 97% | BMI 28.26 kg/m Neurologic Exam Mental Status Oriented to person, place, and time. Speech: speech is normal Level of consciousness: alert Cranial Nerves CN III, IV, Extraocular motions are normal. CN VII Right facial weakness: mild right eyelid ptosis. CN XI Right sternocleidomastoid strength: normal Left sternocleidomastoid strength: normal Right trapezius strength: normal Left trapezius strength: normal Physical Exam Eyes: Extraocular Movements: EOM normal. Neurological: Mental Status: He is oriented to person, place, and time. Psychiatric: Speech: Speech normal. Assessment and Plan: The patient is a 64 year old male with past medical history of bipolar disorder, psychogeni c movement disorder and chronic migraines. He has seen a few neurologists over the years. He developed migraine headaches since 's-30's. He has variable frequency of chronic lizz cruz over the years, worsened over time and rebound headaches in addition. He had evaluation at headache clinic in Fall 2016. He started various supplement regime nt, discontinued from sumatriptan and hydrocodone (bridged with prednisone for several weeks ). He noted slight improvement of migraines from daily headache/migraine to about every oth er day headache or migraine. Over time headaches increased back to near daily right sided he adache. He gets relief with medication or treatment typically but recurs usually within 24 hours. He failed many prophylactic and abortive headache/migraine medications and treatments over the years. Recommendations: Encourage non-pharmacological headache prophylaxis including as daily exercise, stress rela xation, proper nutrition, avoid skipping meals, get adequate sleep, avoid over-sleeping. Boswellia 800 mg 1-3 x daily with food. Discussed again about sleep hygiene, stress relaxation, biofeedback, regular exercise, cons ider Cephaly device. Rx Ubrelvy for abortive migraine treatment due to difficulty with triptans causing rebound headaches and less responsive over time. Ubrelvy with unique mechanism of action is not thought to cause problem of medication overu se headache. Discussed drug interactions, may only take 50 mg per day while on Cipro. Otherwise max of 100 mg per dose, 200 mg in 24 hours. Follow up 3-4 months. He is planning to retire in the next few months, hopefully stress will be improved and migr aines will lessen. documented in this en counter Plan of Treatment +--------+---------+ + + + | Date | Type | Specialty | Care Team | Description | +--------+---------+ + + + | 10/30/ | Office | Neurology | Isac Arechiga, | | | 2019 | Visit | | [facility] | | | | | | [address] | | | | | | [place] [address] | | | | | | [phone] | | | | | | | | +--------+---------+ + + + documented as of this encounter Visit Diagnoses + + | Diagnosis | + + | Chronic migraine without aura without status migrainosus, not intractable - Primary | | Chronic migraine without aura, without mention of intractable migraine without mention | | of status migrainosus | + + | Medication overuse headache Drug induced headache, not elsewhere classified | + + documented in this encounter
--- OUTSIDE RECORDS SUMMARY | ~2019-10-09 | XMS | Encounter Summary ---
Demographics + + + | Address | [address] | | | [place] [address] | + + + | Home Phone | | + + + | Preferred Language | Unknown | + + + | Marital Status | Single | + + + | Mosque Affiliation | Unknown | + + + | Race | White | + + + | Ethnic Group | Other Race | + + + Author + + + | Author | [facility] | + + + | Organization | [facility] | + + + | Address | Unknown | + + + | Phone | Unavailable | + + + Support + + +---------+ + | Name | Relationship | Address | Phone | + + +---------+ + | Alethea Contreras | ECON | Unknown | | + + +---------+ + Care Team Providers + +------+ + | Care Veterinary Radiologist Name | Role | Phone | + [...] [address] | | | | | | [place], [place] | | | | | | [address] | | | +--------+ + + + [...]
--- OUTSIDE RECORDS SUMMARY | ~2019-10-09 | XMS | Encounter Summary ---
Demographics + + + | Address | [address] | | | [place] [address] | + + + | Home Phone | | + + + | Preferred Language | Unknown | + + + | Marital Status | Single | + + + | Congregation Affiliation | Unknown | + + + | Race | White | + + + | Ethnic Group | Other Race | + + + Author + + + | Author | [facility] | + + + | Organization | [facility] | + + + | Address | Unknown | + + + | Phone | Unavailable | + + + Support + + +---------+ + | Name | Relationship | Address | Phone | + + +---------+ + | Alethea Contreras | ECON | Unknown | | + + +---------+ + Care Team Providers + +------+ + | Care Surgical Elastic Knitter Hand Frame Name | Role | Phone | + +------+ + | Santy Kyle MD | PCP | | + +------+ + Encounter Details +--------+ + + + + | Date | Type | Department | Care Team | Description | +--------+ + + + + | 05/11/ | Hospital | Dermatopathology | | | | 2015 | Encounter | [address] | | | | | | Mailcode: CH16D | | | | | | [facility] | | | | | | and Healing, | | | | | | Building [address], 5th | | | | | | Floor [place], [place] | | | | | | [address] | | | | | | [phone] | | | +--------+ + + + [...] skin, | | | | | | [id number]. The surgical | | | | | [...] [facility] | Mailcode [address]D [address] | [place] [address] | | | DERMATOPATHOLOGY | [address] | | | + + + + + | [facility] | Mailcode CH[address]D [address] | [place] [address] | | | DERMATOPATHOLOGY | [address] | | | + + + + + documented in this encounter Visit Diagnoses Not on filedocumented in this encounter"
--- OUTSIDE RECORDS SUMMARY | ~2019-10-09 | XMS | Encounter Summary ---
Demographics + + + | Address | [address] | | | [place] [address] | + + + | Home Phone | | + + + | Preferred Language | Unknown | + + + | Marital Status | | + + + | Hinduism Affiliation | Unknown | + + + | Race | Unknown | + + + | Ethnic Group | Unknown | + + + Author + + + | Author | [facility] | | | and [place] | + + + | Organization | [facility] | | | [...] Team Providers + +------+ + | Care Business Analyst Consultant Name | Role | Phone | + +------+ + | Santy Kyle MD | PCP | | + +------+ + Reason for Visit + +--------+ + | Reason | Onset | Comments | | | Date | | + +--------+ + | Medication Refill | 10/26/ | | | | 2019 | | + +--------+ + Encounter Details +--------+--------+ + + + | Date | Type | Department | Care Team | Description | +--------+--------+ + + + | 10/26/ | Refill | [facility] | Isac Arechiga, | Medication Refill | | 2019 | | NEUROLOGY [address] | [address] | | | | [address] | [facility] [address] | | | | | [place], [place] | [place] [address] | | | | | [address] | [phone] | | | | | [phone] | | | +--------+--------+ + + + [...] | | | | | [place] [address] | | | | | | [phone] | | | | | | | | +--------+---------+ + + + documented as of this encounter Visit Diagnoses Not on filedocumented in this encounter"
--- OUTSIDE RECORDS SUMMARY | ~2019-10-09 | XMS | Encounter Summary ---
Demographics + + + | Address | [address] | | | [place] [address] | + + + | Home Phone | | + + + | Preferred Language | Unknown | + + + | Marital Status | | + + + | Zoroastrianism Affiliation | Unknown | + + + | Race | Unknown | + + + | Ethnic Group | Unknown | + + + Author + + + | Author | [facility] | | | and [place] | + + + | Organization | [facility] | | | [...] Team Providers + +------+ + | Care Gynecological Assistant Name | Role | Phone | + +------+ + | Santy Kyle MD | PCP | | + +------+ + Encounter Details +--------+ + + + + | Date | Type | Department | Care Team | Description | +--------+ + + + + | 02/18/ | Hospital | [facility] | Conversion | Pain | | 2016 | Encounter | CONVERSION [address] | Transaction, | | | | | [address] | Provider Unknown | | | | | [place], [place] | [phone] | | | | | [address] | (Fax) | | | | | [phone] | | | +--------+ + + + [...] D | | | | | | [place] [address] | | | | | | [phone] | | | | | | | | +--------+---------+ + + + documented as of this encounter Procedures + +--------+ + + + | Procedure Name | Priori | Date/Time | Associated Diagnosis | Comments | | | ty | | | | + +--------+ + + + | MRI ANGIOGRAM HEAD | Routin | 02/17/2016 | | Results for this | | WO CONTRAST | e | 11:25 PM | | procedure are in the | | | | PST | | results section. | + +--------+ + + + documented in this encounter Results MRI Angiogram Head wo Contrast (02/17/2016 11:25 PM PST) + + | Specimen | + + | | + + + + + | Narrative | Performed At | + + + | This is a non-reportable procedure without a radiologist report and | | | is used for image storage only | | + + + + + | Procedure Note | + + | Brent Clemente Alex - 10/05/2018 6:47 PM PDT This is a non-reportable procedure | | without a radiologist report and isused for image storage only | + + documented in this encounter Visit Diagnoses + + | Diagnosis | + + | Pain Generalized pain | + + documented in this encounter"
--- OUTSIDE RECORDS SUMMARY | ~2019-10-09 | XMS | Clinical Summary ---
Demographics + + + | Address | [address] | | | [place] [address] | + + + | Home Phone | | + + + | Preferred Language | Unknown | + + + | Marital Status | Single | + + + | Orthodoxy Affiliation | Unknown | + + + | Race | White | + + + | Ethnic Group | Other Race | + + + Author + + + | Author | [facility] | + + + | Organization | [...] Team Providers + +------+ + | Care Health Advocate Name | Role | Phone | + +------+ + | Santy Kyle MD | PCP | | + +------+ + Source Comments MARYBEL is fully live on both [facility] Ambulatory and [facility] InPatient.[facility] Allergies Not on File Medications + + [...] CROSS | | ajit | [phone] | | | | [place] | | for | | [place], | | | | L | | all | | [place] [address] | | | | | | dates | | | | + +--------+ +--------+ + +------+ | MODA | MODA | [phone] | Effect | [phone] | [address] | [address] | | | [place] | | ajit | [phone] | | | | [place] | | for | | [place], | | | | | | all | | [place] [address] | | | | | | dates [...] | | [place] | | 1954 | [phone] | [place] | | | [place] | | | 8 (Home) | [address] | | | | | | [phone] | | | | | | | 4 (Work) | | + +--------+ +--------+ + +"
--- OUTSIDE RECORDS SUMMARY | ~2019-10-09 | XMS | Clinical Summary ---
Demographics + + + | Address | [address] | | | [place] [address] | + + + | Home Phone | | + + + | Preferred Language | Unknown | + + + | Marital Status | | + + + | Caodaism Affiliation | Unknown | + + + | Race | Unknown | + + + | Ethnic Group | Unknown | + + + Author + + + | Author | [facility] | | | and [place] | + + + | Organization | [facility] | | [...] Team Providers + +------+ + | Care Grass Cutter Name | Role | Phone | + +------+ + | Santy Kyle MD | PCP | | + +------+ + Allergies No Known Allergies Medications + + + +---------+------+------+-------+ | Medication | Sig | Dispensed | Refills | Star | End | Statu | | | | | | t | Date | s | | | | | | Date | | | + + + +---------+------+------+-------+ | FLUoxetine | Take 20 mg by mouth | | 0 | | | Activ | | (PROZAC) 20 mg | Daily. | | | | | e | | capsule | | | | | | | + + + +---------+------+------+-------+ | tiZANidine | Take one tablet | | 2 | 08/2 | | Activ | | (ZANAFLEX) 4 mg | daily | | | 6/20 | | e | | tablet | | | | 16 | | | + + + +---------+------+------+-------+ | topiramate (QUDEXY | TAKE 1 CAPSULE BY | 30 | 5 | 04/0 | | Activ | | XR) 150 mg ER | MOUTH DAILY. | capsule | | 7/20 | | e | | sprinkle capsule | | | | 20 | | | + + + +---------+------+------+-------+ | lamoTRIgine | Take 200 mg by mouth | | 0 | 05/2 | | Activ | | (LAMICTAL) 200 MG | 2 times daily. | | | 03/12 | | e | | tablet | | | | 20 | | | + + + +---------+------+------+-------+ | ciprofloxacin | Take 500 mg by mouth | | 0 | 07/22 | | Activ | | (CIPRO) 500 mg | 2 times daily. | | | 04/12 | | e | | tablet | | | | 20 | | | + + + +---------+------+------+-------+ | tamsulosin | Take 0.4 mg by mouth | | 0 | / | | Activ | | (FLOMAX) 0.4 mg CAPS | Daily. | | | 04/12 | | e | | | | | | 20 | | | + + + +---------+------+------+-------+ | ubrogepant | Take 1/2 to 1 tab at | 10 | 3 | 06/ | | Activ | | (UBRELVY) 100 mg | onset of migraine. | tablet | | 09/09 | | e | | tablet | May repeat initial | | | 20 | | | | | dose after 2 hours. | | | | | | | | Do not exceed 200 mg | | | | | | | | in 24 hours. | | | | | | + + + +---------+------+------+-------+ | galcanezumab-gnlm | Loading dose: inject | 2 mL | 2 | 07/24 | | Activ | | (EMGALITY) 120 mg/mL | 2 ml under the skin | | | 0/20 | | e | | injection (pen) | once for the first | | | 20 | | | | | month then inject 1 | | | | | | | | ml under the skin | | | | | | | | every 30 days | | | | | | | | thereafter. | | | | | | + + + +---------+------+------+-------+ Active Problems + + + | Problem | Noted Date | + + + | Chronic migraine | 07/09/2016 | + + + | Obstructive sleep apnea | | + + + | INSOMNIA | | + + + | SCIATICA | | + + + | TWITCHING | | + + + | BIPOLAR DISORDER UNSPECIFIED | | + + + + + | Overview: ICD-10 Record update | + + + +---+ | HYPERTROPHY PROSTATE W/O UR OBST and OTH LUTS | | + +---+ Encounters +--------+---------+ + + + | Date | Type | Specialty | Care Team | Description | +--------+---------+ + + + | 08/19/ | Refill | Neurology | Isac Arechiga, | Medication Question | | 2019 | | | PA-C | | +--------+---------+ + + + | 08/07/ | Office | Neurology | Isac Arechiga, | Chronic migraine | | 2019 | Visit | | PA-C | without aura without | | | | | | status migrainosus, | | | | | | not intractable | | | | | | (Primary Dx); | | | | | | Medication overuse | | | | | | headache | +--------+---------+ + + + from Last 3 Months Immunizations + + + + | Name | Administration Dates | Next Due | + + + + | INFLUENZA PF 19 Y [place] | 12/02/2014 | | | >,TRIVALENT | | | | RECOMBINANT | | | + + + + Family History + + +------+ + | Medical History | Relation | Name | Comments | + + +------+ + | Migraines | Mother | | | + + +------+ + | Stroke | Mother | | | + + +------+ + + +------+--------+ + | Relation | Name | Status | Comments | + +------+--------+ + | Father | | Alive | | + +------+--------+ + | Mother | | Alive | | + +------+--------+ + Social History + +-------+ +--------+------+ | [...] + + Last Filed Vital Signs + + + [...] + + + | Respiratory Rate | 14 | 07/09/2016 3:15 PM | | | | | PDT [...] | | + + + + + Plan of Treatment +--------+---------+ + + + | Date | Type | Specialty | Care Team | Description | +--------+---------+ + + + | 10/30/ | Office | Neurology | Isac Arechiga, | | | 2019 | Visit | [facility] | | | | | | [address] | | | | | | [place] [address] | | | | | | [phone] | | | | | | | | +--------+---------+ + + + + + + + + | Health Maintenance | Due Date | Last | Comments | | | | Done | | + + + + + | Hepatitis C | | | | | Screening | 6 | | | + + + + + | Medication | | | | | Management | 6 | | | + + + + + | Vaccine: | | | | | Dtap/Tdap/Td (1 - | 5 | | | | Tdap) | | | | + + + + + | Colorectal Cancer | | | | | Screening | 6 | | | | (Colonoscopy) | | | | + + + + + | Vaccine: Zoster (1 | | | | | of 2) | 6 | | | + + + + + | Med Mgmt: Cr | | 03/15/19 | | | | 5 | 14 | | + + + + + | Med Mgmt: eGFR | | 03/15/19 | | | | 5 | 14 | | + + + + + | Vaccine: Influenza | | 02/08/20 | | | (#1) | 0 | 19, | | | | | 11/23/19 | | | | | 18, | | | | | 12/03/19 | | | | | 15, | | | | | Addition | | | | | al | | | | | history | | | | | exists | | + + + + + Results Not on filefrom Last 3 Months Insurance +-------+--------+ +--------+ + +------+ | Payer | Benefi | Subscriber | Effect | Phone | Address | Type | | | t Plan | ID | ajit | | | | | | / | | Dates | | | | | | Group | | | | | | +-------+--------+ +--------+ + +------+ | BCBS | BCBS | [id number] | 02/21/19 | | | PPO | | | [place] | | 16-Pre | | | | | | L FEP | | sent | | | | +-------+--------+ +--------+ + +------+ | BCBS | BCBS | [id number] | 02/21/19 | | | PPO | | | [place] | | 16-Pre | | | | | | L FEP | | sent | | | | +-------+--------+ +--------+ + +------+ | MODA | MODA | [id number] | | [phone] | [address] | PPO | | | [address] | | [address] | [phone] | | | | [place] | | esent | | [place], | | | | [place] | | | | [place] [address] | | +-------+--------+ +--------+ + +------+ | MODA | MODA | [id number] | | [phone] | [address] | PPO | | | [address] | | [address] | [phone] | [phone] | | | | [place] | | esent | | [place], | | | | [place] | | | | [place] [address] | | +-------+--------+ +--------+ + +------+ + +--------+ +--------+ + + | Guarantor Name | Accoun | Relation to | Date | Phone | Billing Address | | | t Type | Patient | of | | | | | | | | | | + +--------+ +--------+ + + | Gera Contreras | Person | Self | [birth year] | [address] | | [place] | [place] | | 1954 | [phone] | [place], [place] | | | jessica | | | 8 (Home) | [address] | | | | | | [phone] | | | | | | | 4 (Work) | | + +--------+ +--------+ + + | Gera Contreras | Person | Self | [birth year] | [address] | | [place] | al/[place] | | 1954 | [phone] | [place] | | | [place] | | | 8 (Home) | [address] | | | | | | [phone] | | | | | | | 4 (Work) | | + +--------+ +--------+ + + Advance Directives + + + + + | Type | Date Recorded | Patient | Explanation | | | | Paramedic Instructor | | + + + + + | Power of | | | | | | | | | + + + + + | Advance | | | | | Directive | | | | + + + + +"
[~2019-10-09 08:51] MED LIST changes: +GABAPENTIN300 MG PO
[2019-10-09] MEDS ORDERED: TOPIRAMATE ER150 MG PO (09:02)
[2019-10-09] MEDS ORDERED: EMGALITY120 MG/1 M SQ (09:03)
[2019-10-09] MEDS ORDERED: CIPRO500 MG PO (12:49)
[2019-10-09] MEDS ORDERED: NORCO 5-325 TA1 EACH PO (12:49)
== END 2019-10-09 13:13 | disposition home or self-care (01) ==
LOC: ED 08:51
DX: N13.2 Hydronephrosis with renal and ureteral calculous obstruction (principal); N39.0 Urinary tract infection, site not specified; N28.89 Other specified disorders of kidney and ureter; F31.9 Bipolar disorder, unspecified; Z79.899 Other long term (current) drug therapy
CPT/HCPCS: 74176; 76870; 80048; 81001; 85025; 87088; 96365; 96375; 99284-25; J0696; J1885; J7030

== ENCOUNTER 2019-11-08 07:17 | Day surgery (SDC) | payer BC, OTHER ==
[~2019-11-08] VITALS: Ht 182.9 cm; Wt 93.0 kg
[~2019-11-08 07:17] MED LIST changes: +ADDERALL XR 2525 MG PO; +BOSWELLIA SERRAT1 GM MISC; +CIPRO500 MG PO; +EMGALITY120 MG/1 M SQ; +NORCO 5-325 TA1 EACH PO; +TOPIRAMATE ER150 MG PO; +UBRELVY100 MG PO
[2019-11-08] MEDS ORDERED: IMITREX50 MG PO (07:39)
--- NOTE | 2019-11-08 13:37 | OR ---
[facility] [address] [place], [place] [address] Signed DATE OF OPERATION: 11/08/2019 SURGEON: Tara Mishra MD PROCEDURE: Colonoscopy. INDICATIONS FOR THE PROCEDURE: Gera is a 64-year-old gentleman asked to see me for a followup colonoscopy. At age 51 in 2006, he had a colonoscopy with Dr. Gera Scanlon. Unfortunately, we do not have the pathology report. Apparently, a colonic polyp had been removed. He had another colonoscopy in 2010 and it was negative. He returns now for followup colonoscopy. He has no lower GI complaints. He has done well with Versed and fentanyl in the past. In the office, I gave Gera a pamphlet on colonoscopy and we reviewed the nature of the test along with the risks including, but not limited to gas bloating, crampy abdominal pain, bleeding, perforation requiring surgery, and missed diagnosis. We also discussed the need for IV conscious sedation, he had expressed understanding and wished to proceed. PROCEDURE NOTE: Gera was taken into our endoscopy suite and placed in the left lateral decubitus position. He was given 100 mcg of fentanyl and 5 mg of Versed to cover the case. A digital rectal exam was performed. He does have some induration and swelling to his prostate gland consistent with his age. The adult colonoscope was introduced and advanced quite readily into the cecum itself. His prep was good. We could easily see the appendiceal orifice and the ileocecal valve. The scope was slowly withdrawn. We used our snare and the hot biopsy forceps to remove the polyp in the proximal right colon and the distal right colon was a much smaller polyp, easily removed with a hot biopsy forceps. We did not see any diverticulosis. The rectum was unremarkable. Upon retroflexion of scope, there was no additional pathology noted above the anal canal. After this, the gas was suctioned out. The colonoscope removed. Gera tolerated the procedure quite well. RECOMMENDATIONS: I will see Gera back in my office in 7 to 14 days to review his results. Tara Mishra MD Electronically Signed By: TARA MISHRA MD 11/08/19 1025 Electronically Signed By: TARA MISHRA MD 11/09/19 0751 PATIENT NAME: GERA SEE OPERATIVE REPORT DATE OF : 57 REPORT #: [id number] PHYSICIAN: TARA MISHRA MD PCP: RAYSA MURRAY REPORT IS CONFIDENTIAL AND NOT TO BE RELEASED WITHOUT AUTHORIZATION [facility] [address] [place] [address] Signed ALB/MODL /[id number] cc: MD Raysa Chavez PA Copies: TARA MISHRA MD, LINDA PA ~ Electronically Signed By: TARA MISHRA MD 11/08/19 1025 Electronically Signed By: TARA MISHRA MD 11/09/19 0751 PATIENT NAME: GERA SEE OPERATIVE REPORT DATE OF : 57 REPORT #: [id number] PHYSICIAN: TARA MISHRA MD PCP: RAYSA MURRAY REPORT IS CONFIDENTIAL AND NOT TO BE RELEASED WITHOUT AUTHORIZATION
--- NOTE | 2019-11-09 14:54 | PATH ---
[facility] [address] [place] [address] Signed SPECIMEN(S): A PROXIMAL ASCENDING POLYP SPECIMEN(S): B DISTAL ASCENDING POLYP SPECIMEN SOURCE: A. PROXIMAL ASCENDING POLYP B. DISTAL ASCENDING POLYP CLINICAL HISTORY: Pre-op: History of colonic polyps. Post - op: Polyps (colon). Colonoscopy. MICROSCOPIC DESCRIPTION: Histologic sections of all submitted blocks are examined by light microscopy. These findings, together with the gross examination, support the pathologic diagnosis. FINAL PATHOLOGIC DIAGNOSIS: A. Colon, proximal ascending, polyp, polypectomy: - Colonic mucosa with no histopathologic abnormality. - Negative for dysplasia or malignancy. B. Colon, distal ascending, polyp, polypectomy: - Tubular adenoma. - Negative for high-grade dysplasia or malignancy. NAL:cml:C2NR GROSS DESCRIPTION: Two specimens are received in two containers, labeled "WP." A. The specimen, labeled "WP #1," and designated on the requisition "proximal ascending/right polypectomy," is received in formalin and consists of one rapp soft tissue fragment that measures 0.3 cm in greatest dimension. The specimen is entirely submitted in cassette (A1). B. The specimen, labeled "WP, #2," and designated on the requisition "distal ascending/right polypectomy," is received in formalin and consists of one rapp soft tissue fragment that measures 0.3 cm in greatest dimension. The specimen is entirely submitted in cassette (B1). AI (under the direct supervision of a pathologist) The Gross Description was prepared using a voice recognition system. The report was reviewed for accuracy; however, sound-alike word errors, addition and/or deletions may occur. If there is any question about this report, please contact Client Services. PERFORMING LABORATORY: The technical component was performed by [employer], Saulo Santiagonavdeep Torsten, PATIENT NAME: MARV SEE PATHOLOGY DATE OF : 57 REPORT #: [id number] PHYSICIAN: JOIE PATHOLOGY PCP: JAIRO MURRAY REPORT IS CONFIDENTIAL AND NOT TO BE RELEASED WITHOUT AUTHORIZATION [facility] [address] [place], [place] [address] [place] [address] (Historic Preservationist: Lou Harkins MD; CLIA# [id number]). Professional interpretation was performed by [facility], [address] [address] (CLIA# [id number]). Diagnostician: Snow Ham MD Pathologist Electronically Signed 11/09/2019 Copies: ~ PATIENT NAME: MARV SEE PATHOLOGY DATE OF : 57 REPORT #: [id number] PHYSICIAN: JOIE LAYNE PCP: JAIRO MURRAY REPORT IS CONFIDENTIAL AND NOT TO BE RELEASED WITHOUT AUTHORIZATION
== END 2019-11-08 09:45 | disposition home or self-care (01) ==
LOC: OPS 07:17 → DS 07:17 → OPS 08:15
PROVIDERS: ATTEND Colon & Rectal Surgery
PROC: 0DBK8ZZ Excision of Ascending Colon, Via Natural or Artificial Opening Endoscopic (ICD-10-PCS; 2019-11-08)
PROC: 0DBK8ZZ Excision of Ascending Colon, Via Natural or Artificial Opening Endoscopic (ICD-10-PCS; principal; 2019-11-08 08:15)
DX: D12.2 Benign neoplasm of ascending colon (principal); E78.5 Hyperlipidemia, unspecified; Z86.010 Personal history of colon polyps; Z79.899 Other long term (current) drug therapy
CPT/HCPCS: 99153; G0500; J2250; J3010; J7121

== ENCOUNTER 2021-04-16 09:37 | Emergency (ER) | payer OTHER ==
[~2021-04-16] VITALS: Ht 182.9 cm; Wt 5.4 kg
[~2021-04-16 09:37] MED LIST changes: +IMITREX50 MG PO
--- OUTSIDE RECORDS SUMMARY | 2021-04-16 09:40 | XMS ---
PreManage Notification: MARV SEE Security Costing Analyst Events No recent Security Events currently on file [facility] There are no care providers on record at this time. Ancelmo has no Care Guidelines for this patient. Frank VISIT COUNT (12 MO.) 1 JUVENAL Rojo TOTAL 1 NOTE: Visits indicate total known visits. ED/UCC VISIT TRACKING (12 MO.) 04/16/2021 09:38 JUVENAL Jorge [place] TYPE: Emergency COMPLAINT: - R ANKLE INJURY INPATIENT VISIT TRACKING (12 MO.) No inpatient visits to display in this time frame [id number]
== END 2021-04-16 11:47 | disposition home or self-care (01) ==
LOC: ED 09:37
DX: S93.401A Sprain of unspecified ligament of right ankle, initial encounter (principal); Z79.899 Other long term (current) drug therapy; W00.0XXA Fall on same level due to ice and snow, initial encounter
CPT/HCPCS: 73610; 99283-25

== ENCOUNTER 2021-08-16 16:58 | Emergency (ER) | payer OTHER ==
[~2021-08-16] VITALS: Ht 182.9 cm; Wt 93.0 kg
--- OUTSIDE RECORDS SUMMARY | 2021-08-16 17:02 | XMS ---
PreManage Notification: MARV SEE Security Slubber Tender Events No recent Security Events currently on file [facility] There are no care providers on record at this time. Ancelmo has no Care Guidelines for this patient. Frank VISIT COUNT (12 MO.) 2 JUVENAL Rojo TOTAL 2 NOTE: Visits indicate total known visits. ED/UCC VISIT TRACKING (12 MO.) 08/16/2021 16:59 JU[facility]NAL [place] TYPE: Emergency COMPLAINT: - LEFT LEG PAIN 04/16/2021 09:38 JU[facility]NAL [place] TYPE: Emergency COMPLAINT: - R ANKLE INJURY DIAGNOSES: - Fall on same level due to ice and snow, initial encounter - Sprain of unspecified ligament of right ankle, initial encounter - Other nursing home (current) drug therapy - Pain in right ankle and joints of right foot INPATIENT VISIT TRACKING (12 MO.) No inpatient visits to display in this time frame [id number]
[2021-08-16] MEDS ORDERED: MELOXICAM15 MG PO (17:11)
[2021-08-16] MEDS ORDERED: SULFAMETHOXAZO1 EAC1 PO (17:11)
[2021-08-16] MEDS ORDERED: FLUCONAZOLE150 MG PO (17:11)
== END 2021-08-16 17:57 | disposition home or self-care (01) ==
LOC: ED 16:58
DX: S80.12XA Contusion of left lower leg, initial encounter (principal); X58.XXXA Exposure to other specified factors, initial encounter; Z79.899 Other long term (current) drug therapy
CPT/HCPCS: 99283

== ENCOUNTER 2021-11-11 07:09 | Emergency (ER) | payer MEDICARE, OTHER ==
[~2021-11-11] VITALS: Ht 182.9 cm; Wt 80.3 kg
[~2021-11-11 07:09] MED LIST changes: +FLUCONAZOLE150 MG PO; +MELOXICAM15 MG PO; +SULFAMETHOXAZO1 EAC1 PO
--- OUTSIDE RECORDS SUMMARY | 2021-11-11 07:13 | XMS ---
PreManage Notification: MARV SEE Security Front Office Supervisor Events No recent Security Events currently on file CRITERIA MET - [facility] CARE PROVIDERS There are no care providers on record at this time. Ancelmo has no Care Guidelines for this patient. Frank VISIT COUNT (12 MO.) 3 JUVENAL Rojo TOTAL 3 NOTE: Visits indicate total known visits. 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
[2021-11-11] MEDS ORDERED: TIZANIDINE HCL4 MG PO (07:28)
[2021-11-11] MEDS ORDERED: ATORVASTATIN CA20 MG PO (07:29)
[2021-11-11] MEDS ORDERED: FUROSEMIDE20 MG PO (07:31)
[2021-11-11] MEDS ORDERED: LAMOTRIGINE200 MG PO (07:32)
[2021-11-11] MEDS ORDERED: LISINOPRIL2.5 MG PO (07:32)
--- NOTE | 2021-11-12 20:08 | EKG ---
[facility] [address] [facility] [place] [address] Signed Sinus bradycardia with 1st degree AV block with fusion complexes Left axis deviation Nonspecific intraventricular block Abnormal ECG No previous ECGs available Confirmed by Syd Meier MD () on 11/12/2021 8:08:35 PM Electronically Signed By: SYD MEIER MD 11/12/212007 PATIENT NAME: MARV SEE Electrocardiogram DATE OF : 57 PHYSICIAN: SYD MEIER MD REPORT #: [id number] REPORT IS CONFIDENTIAL AND NOT TO BE RELEASED WITHOUT AUTHORIZATION
== END 2021-11-11 09:57 | disposition home or self-care (01) ==
LOC: ED 07:09
DX: R55 Syncope and collapse (principal); I50.9 Heart failure, unspecified; Z79.899 Other long term (current) drug therapy
CPT/HCPCS: 36415; 80053; 81001; 83735; 84484; 85025; 93005; 93010; 96360; 99284-25; J7030

== ENCOUNTER 2022-10-22 11:17 | Emergency (ER) | payer OTHER, MEDICARE ==
[~2022-10-22] VITALS: Ht 182.9 cm; Wt 87.6 kg
--- OUTSIDE RECORDS SUMMARY | ~2022-10-22 | XMS | Continuity of Care Document ---
Demographics + + + | Address | [address] | | | [place] [address] | + + + | Preferred Language | Unknown | + + + | Marital Status | | + + + | Temple Affiliation | Unknown | + + + | Race | White | + + + | Ethnic Group | Not or | + + + Author + + + | Author | [facility] | + + + | Organization | [facility] | + + + | Address | [address] | | | [place], [place] [address] | + + + | Phone | | + + + Care Team Providers + + + + | Care Manager Rehab Name | Role | Phone | + + + + Unavailable | Unavailable | + + + + Unavailable | Unavailable | + + + + Unavailable | Unavailable | + + + + Allergies No information. Encounters No information. Functional Status No information. Immunizations + + + + | date | description | facility | + + + + | 2021-08-28 00:00 | Influenza, Injectable, | [facility] | | | Quadrivalent, Preservative | | + + + + | 2021-11-11 00:00 | Influenza, Injectable, | [facility] | | | Quadrivalent, Preservative | | + + + + Medications + + + + | date | description | facility | + + + + | 2021-08-28 00:00 | DIVALPROEX SODIUM | [facility] | + + + + | 2021-11-11 00:00 | DIVALPROEX SODIUM | [facility] | + + + + | 2021-08-28 00:00 | MELOXICAM | [facility] | + + + + | 2021-11-11 00:00 | MELOXICAM | [facility] | + + + + | 2021-08-28 00:00 | FLUCONAZOLE | [facility] | + + + + | 2021-08-28 00:00 | | [facility] | | | SULFAMETHOXAZOLE/TRIMETHOPR | | | | IM | | + + + + | 2021-11-11 00:00 | LAMOTRIGINE | [facility] | + + + + | 2021-08-28 00:00 | FLUOXETINE HCL | [facility] | + + + + | 2021-11-11 00:00 | FLUOXETINE HCL | [facility] | + + + + | 2019-10-09 00:00 | CIPROFLOXACIN HCL | [facility] | + + + + | 2019-10-09 00:00 | CIPROFLOXACIN HCL | [facility] | + + + + | 2021-08-28 00:00 | LAMOTRIGINE | [facility] | + + + + | 2021-11-11 00:00 | LAMOTRIGINE | [facility] | + + + + | 2021-08-28 00:00 | SUMATRIPTAN SUCCINATE | [facility] | + + + + | 2021-11-11 00:00 | SUMATRIPTAN SUCCINATE | [facility] | + + + + | 2021-08-28 00:00 | Ubrogepant | [facility] | + + + + | 2021-11-11 00:00 | Ubrogepant | [facility] | + + + + | 2021-11-11 00:00 | FUROSEMIDE | [facility] | + + + + | 2021-08-28 00:00 | GABAPENTIN | [facility] | + + + + | 2021-11-11 00:00 | GABAPENTIN | [facility] | + + + + | 2021-11-11 00:00 | LISINOPRIL | [facility] | + + + + | 2021-11-11 00:00 | TIZANIDINE HCL | [facility] | + + + + | 2021-11-11 00:00 | ATORVASTATIN CALCIUM | [facility] | + + + + | 2021-08-28 00:00 | QUETIAPINE FUMARATE | [facility] | + + + + | 2021-11-11 00:00 | QUETIAPINE FUMARATE | [facility] | + + + + | 2021-08-28 00:00 | HYDROCODONE | [facility] | | | BIT/ACETAMINOPHEN | | + + + + | 2021-11-11 00:00 | HYDROCODONE | [facility] | | | BIT/ACETAMINOPHEN | | + + + + | 2019-10-09 00:00 | HYDROCODONE | [facility] | | | BIT/ACETAMINOPHEN | | + + + + | 2019-10-09 00:00 | HYDROCODONE | [facility] | | | BIT/ACETAMINOPHEN | | + + + + | 2021-08-28 00:00 | SUMATRIPTAN SUCCINATE | [facility] | + + + + | 2021-11-11 00:00 | SUMATRIPTAN SUCCINATE | [facility] | + + + + | 2021-08-28 00:00 | VERAPAMIL HCL | [facility] | + + + + | 2021-11-11 00:00 | VERAPAMIL HCL | [facility] | + + + + Problems + + + + | date | description | facility | + + + + | 2015-07-02 00:00 | Migraine-cluster headache | [facility] | | | syndrome | | + + + + | 2015-07-02 00:00 | Migraine-cluster headache | [facility] | | | syndrome | | + + + + | 2019-10-09 00:00 | Calculus of ureter | [facility] | + + + + | 2019-10-09 00:00 | Calculus of ureter | [facility] | + + + + | 2019-10-09 00:00 | Mass of left kidney | [facility] | + + + + | 2019-10-09 00:00 | Mass of left kidney | [facility] | + + + + | 2019-10-09 00:00 | Urinary tract infection | [facility] | + + + + | 2019-10-09 00:00 | Urinary tract infection | [facility] | + + + + | 2021-04-16 00:00 | Sprain of right ankle | [facility] | + + + + | 2021-04-16 00:00 | Sprain of right ankle | [facility] | + + + + | 2021-08-16 00:00 | Hematoma of left lower leg | [facility] | | | | | + + + + | 2021-08-16 00:00 | Hematoma of left lower leg | [facility] | | | | | + + + + | 2021-11-11 00:00 | Syncope | [facility] | + + + + Procedures No information. Results/Labs +--------+--------+ +---------+--------+---------+ | test | date | facility | value | unit | notes | +--------+--------+ +---------+--------+---------+ + + | Result panel 1 | + + + + + +-------+ + + | | 2021-11-11 | [facility] | 5.3 | (missing) | (missing) | | (unavailable [facility] 07:53 [facility] | | | + + + +-------+ + + + + | Result panel 2 | + + + + + +--------+ + + | | 2021-11-11 | [facility] | 72.8 | (missing) | (missing) | | (unavailable | 07:53 [facility] | | | | + + + +--------+ + + + + | Result panel 3 | + + + + + +--------+ + + | | 2021-11-11 | [facility] | 14.5 | (missing) | (missing) | | (unavailable | 07:53 [facility] | | | | + + + +--------+ + + + + | Result panel 4 | + + + + + +-------+ + + | | 2021-11-11 | [facility] | 7.1 | (missing) | (missing) | | (unavailable | 07:53 [facility] | | | | + + + +-------+ + + + + | Result panel 5 | + + + + + +-------+ + + | | 2021-11-11 | [facility] | 4.6 | (missing) | (missing) | | (unavailable | 07:53 [facility] | | | | + + + +-------+ + + + + | Result panel 6 | + + + + + +-------+ + + | | 2021-11-11 | [facility] | 1.0 | (missing) | (missing) | | (unavailable | 07:53 [facility] | | | | + + + +-------+ + + + + | Result panel 7 | + + + + + +--------+ + + | | 2021-11-11 | [facility] | 4.01 | (missing) | (missing) | | (unavailable | 07:53 [facility] | | | | + + + +--------+ + + + + | Result panel 8 | + + + + + +--------+ + + | | 2021-11-11 | [facility] | 12.7 | (missing) | (missing) | | (unavailable | 07:53 [facility] | | | | + + + +--------+ + + + + | Result panel 9 | + + + + + +------+---------+ + | | 2021-11-11 | [facility] | 88 | mg/dL | (missing) | | (unavailable | 07:53 [facility] | | | | + + + +------+---------+ + + + | Result panel 10 | + + + + + +------+---------+ + | | 2021-11-11 | [facility] | 17 | mg/dL | (missing) | | (unavailable | 07:53 [facility] | | | | + + + +------+---------+ + + + | Result panel 11 | + + + + + +--------+---------+ + | | 2021-11-11 | [facility] | 1.18 | mg/dL | (missing) | | (unavailable | 07:53 [facility] | | | | + + + +--------+---------+ + + + | Result panel 12 | + + + + + +------+ + + | | 2021-11-11 | [facility] | 68 | (missing) | (missing) | | (unavailable | 07:53 [facility] | | | | + + + +------+ + + + + | Result panel 13 | + + + + + +---------+ + + | | 2021-11-11 | [facility] | 14.40 | (missing) | (missing) | | (unavailable | 07:53 [facility] | | | | + + + +---------+ + + + + | Result panel 14 | + + + + + +--------+ + + | | 2021-11-11 | [facility] | 38.8 | (missing) | (missing) | | (unavailable | 07:53 [facility] | | | | + + + +--------+ + + + + | Result panel 15 | + + + + + +-------+ + + | | 2021-11-11 | [facility] | 141 | (missing) | (missing) | | (unavailable | 07:53 [facility] | | | | + + + +-------+ + + + + | Result panel 16 | + + + + + +-------+ + + | | 2021-11-11 | [facility] | 3.9 | (missing) | (missing) | | (unavailable | 07:53 [facility] | | | | + + + +-------+ + + + + | Result panel 17 | + + + + + +-------+ + + | | 2021-11-11 | [facility] | 103 | (missing) | (missing) | | (unavailable | 07:53 [facility] | | | | + + + +-------+ + + + + | Result panel 18 | + + + + + +------+ + + | | 2021-11-11 | [facility] | 32 | (missing) | (missing) | | (unavailable | 07:53 [facility] | | | | + + + +------+ + + + + | Result panel 19 | + + + + + +-------+ + + | | 2021-11-11 | [facility] | 9.9 | (missing) | (missing) | | (unavailable | 07:53 [facility] | | | | + + + +-------+ + + + + | Result panel 20 | + + + + + +-------+---------+ + | | 2021-11-11 | [facility] | 9.0 | mg/dL | (missing) | | (unavailable | 07:53 [facility] | | | | + + + +-------+---------+ + + + | Result panel 21 | + + + + + +-------+---------+ + | | 2021-11-11 | [facility] | 2.0 | mg/dL | (missing) | | (unavailable | 07:53 [facility] | | | | + + + +-------+---------+ + + + | Result panel 22 | + + + + + +-------+ + + | | 2021-11-11 | [facility] | 6.8 | (missing) | (missing) | | (unavailable | 07:53 [facility] | | | + + + +-------+ + + + + | Result panel 23 | + + + + + +-------+ + + | | 2021-11-11 | [facility] | 3.8 | (missing) | (missing) | | (unavailable | 07:53 [facility] | | | + + + +-------+ + + + + | Result panel 24 | + + + + + +-------+ + + | | 2021-11-11 | [facility] | 3.0 | (missing) | (missing) | | (unavailable | 07:53 [facility] | | | | + + + +-------+ + + + + | Result panel 25 | + + + + + +--------+ + + | | 2021-11-11 | [facility] | 96.8 | (missing) | (missing) | | (unavailable | 07:53 [facility] | | | + + + +--------+ + + + + | Result panel 26 | + + + + + +--------+ + + | | 2021-11-11 | [facility] | 1.27 | (missing) | (missing) | | (unavailable | 07:53 [facility] | | | | + + + +--------+ + + + + | Result panel 27 | + + + + + +-------+ + + | | 2021-11-11 | [facility] | 1.0 | (missing) | (missing) | | (unavailable | 07:53 [facility] | | | | + + + +-------+ + + + + | Result panel 28 | + + + + + +------+ + + | | 2021-11-11 | [facility] | 21 | (missing) | (missing) | | (unavailable | 07:53 [facility] | | | | + + + +------+ + + + + | Result panel 29 | + + + + + +------+ + + | | 2021-11-11 | [facility] | 25 | (missing) | (missing) | | (unavailable | 07:53 [facility] | | | + + + +------+ + + + + | Result panel 30 | + + + + + +-------+ + + | | 2021-11-11 | [facility] | 149 | (missing) | (missing) | | (unavailable | 07:53 [facility] | | | + + + +-------+ + + + + | Result panel 31 | + + + + + +--------+ + + | | 2021-11-11 | [facility] | 64.4 | (missing) | (missing) | | (unavailable | 07:53 [facility] | | | | + + + +--------+ + + + + | Result panel 32 | + + + + + +--------+ + + | | 2021-11-11 | [facility] | 31.7 | (missing) | (missing) | | (unavailable | 07:53 [facility] | | | | + + + +--------+ + + + + | Result panel 33 | + + + + + +--------+ + + | | 2021-11-11 | [facility] | 32.8 | (missing) | (missing) | | (unavailable | 07:53 [facility] | | | | + + + +--------+ + + + + | Result panel 34 | + + + + + +--------+ + + | | 2021-11-11 | [facility] | 16.6 | (missing) | (missing) | | (unavailable | 07:53 [facility] | | | | + + + +--------+ + + + + | Result panel 35 | + + + + + +-------+ + + | | 2021-11-11 | [facility] | 133 | (missing) | (missing) | | (unavailable | 07:53 [facility] | | | + + + +-------+ + + + + | Result panel 36 | + + + + + + + + + | | 2021-11-11 | [facility] | YELLOW | (missing) | (missing) | | (unavailable | 08:02 [facility] | | | + + + + + + + + + | Result panel 37 | + + + + + +---------+ + + | | 2021-11-11 | [facility] | CLEAR | (missing) | (missing) | | (unavailable | 08:02 [facility] | | | | + + + +---------+ + + + + | Result panel 38 | + + + + + + + + + | | 2021-11-11 | [facility] | NEGATIVE | (missing) | (missing) | | (unavailable | 08:02 [facility] | | | | + + + + + + + + + | Result panel 39 | + + + + + + + + + | | 2021-11-11 | [facility] | NEGATIVE | (missing) | (missing) | | (unavailable | 08:02 [facility] | | | | + + + + + + + + + | Result panel 40 | + + + + + + + + + | | 2021-11-11 | [facility] | NEGATIVE | (missing) | (missing) | | (unavailable | 08:02 [facility] | | | | + + + + + + + + + | Result panel 41 | + + + + + +---------+ + + | | 2021-11-11 | [facility] | 1.010 | (missing) | (missing) | | (unavailable | 08:02 [facility] | | | | + + + +---------+ + + + + | Result panel 42 | + + + + + + + + + | | 2021-11-11 | [facility] | MODERATE | (missing) | (missing) | | (unavailable | 08:02 [facility] | | | | + + + + + + + + + | Result panel 43 | + + + + + +-------+ + + | | 2021-11-11 | [facility] | 7.0 | (missing) | (missing) | | (unavailable | 08:02 [facility] | | | | + + + +-------+ + + + + | Result panel 44 | + + + + + + + + + | | 2021-11-11 | [facility] | NEGATIVE | (missing) | (missing) | | (unavailable | 08:02 [facility] | | | + + + + + + + + + | Result panel 45 | + + + + + + + + + | | 2021-11-11 | [facility] | NORMAL | (missing) | (missing) | | (unavailable | 08:02 [facility] | | | | + + + + + + + + + | Result panel 46 | + + + + + + + + + | | 2021-11-11 | [facility] | NEGATIVE | (missing) | (missing) | | (unavailable | 08:02 [facility] | | | | + + + + + + + + + | Result panel 47 | + + + + + + + + + | | 2021-11-11 | [facility] | NEGATIVE | (missing) | (missing) | | (unavailable | 08:02 [facility] | | | + + + + + + + + + | Result panel 48 | + + + + + +---------+ + + | | 2021-11-11 | [facility] | 21-40 | (missing) | (missing) | | (unavailable | 08:02 [facility] | | | + + + +---------+ + + + + | Result panel 49 | + + + + + +-------+ + + | | 2021-11-11 | [facility] | 2-3 | (missing) | (missing) | | (unavailable | 08:02 [facility] | | | | + + + +-------+ + + + + | Result panel 50 | + + + + + + + + + | | 2021-11-11 | [facility] | SQUAMOUS 1+ | (missing) | (missing) | | (unavailable | 08:02 [facility] | | | | + + + + + + + + + | Result panel 51 | + + + + + + + + + | | 2021-11-11 | [facility] | NONE SEEN | (missing) | (missing) | | (unavailable | 08:02 [facility] | | | | + + + + + + + + + | Result panel 52 | + + + + + + + + + | | 2021-11-11 | [facility] | NONE SEEN | (missing) | (missing) | | (unavailable | 08:02 [facility] | | | | + + + + + + + + + | Result panel 53 | + + + + + + + + + | | 2021-11-11 | [facility] | NONE SEEN | (missing) | (missing) | | (unavailable | 08:02 [facility] | | | + + + + + + + + + | Result panel 54 | + + + + + +------+ + + | | 2021-11-11 | [facility] | No | (missing) | (missing) | | (unavailable | 08:02 [facility] | | | + + + +------+ + + + + | Result panel 55 | + + + + + + + + + | | 2021-11-11 | [facility] | CLEAN CATCH | (missing) | (missing) | | (unavailable | 08:02 [facility] | | | + + + + + + + Social History No information. Vital Signs + + + +---------+ | date | measurement | value | units | + + + +---------+ | 2021-04-16 00:00 | BMI | 1.6 | kg/m2 | + + + +---------+ | 2021-04-16 00:00 | BP_diastolic | 82 | mmHg | + + + +---------+ | 2021-04-16 00:00 | BP_systolic | 125 | mmHg | + + + +---------+ | 2021-04-16 00:00 | heart_rate | 78 | /min | + + + +---------+ | 2021-04-16 00:00 | height_metric | 182.88 | cm | + + + +---------+ | 2021-04-16 00:00 | height_standard | 72 | in | + + + +---------+ | 2021-04-16 00:00 | o2_saturation | 96 | % | + + + +---------+ | 2021-04-16 00:00 | respiration_rate | 16 | /min | + + + +---------+ | 2021-04-16 00:00 | temperature_metric | 36.72 | C | | | | | | + + + +---------+ | 2021-04-16 00:00 | | 98.1 | F | | | temperature_standar | | | | | d | | | + + + +---------+ | 2021-04-16 00:00 | weight_metric | 5.44 | kg | + + + +---------+ | 2021-04-16 00:00 | weight_standard | 12 | lb | + + + +---------+ | 2021-08-16 00:00 | BMI | 27.8 | kg/m2 | + + + +---------+ | 2021-08-16 00:00 | BP_diastolic | 95 | mmHg | + + + +---------+ | 2021-08-16 00:00 | BP_systolic | 128 | mmHg | + + + +---------+ | 2021-08-16 00:00 | heart_rate | 59 | /min | + + + +---------+ | 2021-08-16 00:00 | height_metric | 182.88 | cm | + + + +---------+ | 2021-08-16 00:00 | height_standard | 72 | in | + + + +---------+ | 2021-08-16 00:00 | o2_saturation | 98 | % | + + + +---------+ | 2021-08-16 00:00 | respiration_rate | 16 | /min | + + + +---------+ | 2021-08-16 00:00 | temperature_metric | 36.72 | C | | | | | | + + + +---------+ | 2021-08-16 00:00 | | 98.1 | F | | | temperature_standar | | | | | d | | | + + + +---------+ | 2021-08-16 00:00 | weight_metric | 92.99 | kg | + + + +---------+ | 2021-08-16 00:00 | weight_standard | 205 | lb | + + + +---------+ | 2021-08-16 00:00 | weight_standard | 205.01 | lb | + + + +---------+ | 2021-11-11 00:00 | BMI | 24.0 | kg/m2 | + + + +---------+ | 2021-11-11 00:00 | BP_diastolic | 80 | mmHg | + + + +---------+ | 2021-11-11 00:00 | BP_systolic | 116 | mmHg | + + + +---------+ | 2021-11-11 00:00 | heart_rate | 53 | /min | + + + +---------+ | 2021-11-11 00:00 | height_metric | 182.88 | cm | + + + +---------+ | 2021-11-11 00:00 | height_standard | 72 | in | + + + +---------+ | 2021-11-11 00:00 | o2_saturation | 99 | % | + + + +---------+ | 2021-11-11 00:00 | respiration_rate | 16 | /min | + + + +---------+ | 2021-11-11 00:00 | temperature_metric | 36.56 | C | | | | | | + + + +---------+ | 2021-11-11 00:00 | | 97.8 | F | | | temperature_standar | | | | | d | | | + + + +---------+ | 2021-11-11 00:00 | weight_metric | 80.29 | kg | + + + +---------+ | 2021-11-11 00:00 | weight_standard | 177 | lb | + + + +---------+ | 2021-11-11 00:00 | weight_standard | 177.01 | lb | + + + +---------+"
--- OUTSIDE RECORDS SUMMARY | ~2022-10-22 | XMS | Continuity of Care Document ---
Demographics + + + | Address | [address] | | | [place] [address] | + + + | Preferred Language | Unknown | + + + | Marital Status | | + + + | Jewish Affiliation | Unknown | + + + | Race | White | + + + | Ethnic Group | Not or | + + + Author + + + | Author | [facility] | + + + | Organization | [facility] | + + + | Address | [address] | | | [place], [place] [address] | + + + | Phone | | + + + Care Team Providers + + + + | Care Sock Lining Examiner Name | Role | Phone | + [...] | 2021-08-28 00:00 | Influenza, Injectable, | [facility] | | | Quadrivalent, Preservative | | + + + + | 2021-11-11 00:00 | Influenza, Injectable, | [facility] | | | Quadrivalent, Preservative | | + + + + Medications + + + + | date | description | facility | + + + + | 2021-08-28 00:00 | DIVALPROEX SODIUM | [facility] | + + + + | 2021-11-11 00:00 | DIVALPROEX SODIUM | [facility] | + + + + | 2021-08-28 00:00 | MELOXICAM | [facility] | + + + + | 2021-11-11 00:00 | MELOXICAM | [facility] | + + + + | 2021-08-28 00:00 | FLUCONAZOLE | [facility] | + + + + | 2021-08-28 00:00 | | [facility] | | | SULFAMETHOXAZOLE/TRIMETHOPR | | | | IM | | + + + + | 2021-11-11 00:00 | LAMOTRIGINE | [facility] | + + + + | 2021-08-28 00:00 | FLUOXETINE HCL | [facility] | + + + + | 2021-11-11 00:00 | FLUOXETINE HCL | [facility] | + + + + | 2019-10-09 00:00 | CIPROFLOXACIN HCL | [facility] | + + + + | 2019-10-09 00:00 | CIPROFLOXACIN HCL | [facility] | + + + + | 2021-08-28 00:00 | LAMOTRIGINE | [facility] | + + + + | 2021-11-11 00:00 | LAMOTRIGINE | [facility] | + + + + | 2021-08-28 00:00 | SUMATRIPTAN SUCCINATE | [facility] | + + + + | 2021-11-11 00:00 | SUMATRIPTAN SUCCINATE | [facility] | + + + + | 2021-08-28 00:00 | Ubrogepant | [facility] | + + + + | 2021-11-11 00:00 | Ubrogepant | [facility] | + + + + | 2021-11-11 00:00 | FUROSEMIDE | [facility] | + + + + | 2021-08-28 00:00 | GABAPENTIN | [facility] | + + + + | 2021-11-11 00:00 | GABAPENTIN | [facility] | + + + + | 2021-11-11 00:00 | LISINOPRIL | [facility] | + + + + | 2021-11-11 00:00 | TIZANIDINE HCL | [facility] | + + + + | 2021-11-11 00:00 | ATORVASTATIN CALCIUM | [facility] | + + + + | 2021-08-28 00:00 | QUETIAPINE FUMARATE | [facility] | + + + + | 2021-11-11 00:00 | QUETIAPINE FUMARATE | [facility] | + + + + | 2021-08-28 00:00 | HYDROCODONE | [facility] | | | BIT/ACETAMINOPHEN | | + + + + | 2021-11-11 00:00 | HYDROCODONE | [facility] | | | BIT/ACETAMINOPHEN | | + + + + | 2019-10-09 00:00 | HYDROCODONE | [facility] | | | BIT/ACETAMINOPHEN | | + + + + | 2019-10-09 00:00 | HYDROCODONE | [facility] | | | BIT/ACETAMINOPHEN | | + + + + | 2021-08-28 00:00 | SUMATRIPTAN SUCCINATE | [facility] | + + + + | 2021-11-11 00:00 | SUMATRIPTAN SUCCINATE | [facility] | + + + + | 2021-08-28 00:00 | VERAPAMIL HCL | [facility] | + + + + | 2021-11-11 00:00 | VERAPAMIL HCL | [facility] | + + + + Problems + + + + | date | description | facility | + + + + | 2015-07-02 00:00 | Migraine-cluster headache | [facility] | | | syndrome | | + + + + | 2015-07-02 00:00 | Migraine-cluster headache | [facility] | | | syndrome | | + + + + | 2019-10-09 00:00 | Calculus of ureter | [facility] | + + + + | 2019-10-09 00:00 | Calculus of ureter | [facility] | + + + + | 2019-10-09 00:00 | Mass of left kidney | [facility] | + + + + | 2019-10-09 00:00 | Mass of left kidney | [facility] | + + + + | 2019-10-09 00:00 | Urinary tract infection | [facility] | + + + + | 2019-10-09 00:00 | Urinary tract infection | [facility] | + + + + | 2021-04-16 00:00 | Sprain of right ankle | [facility] | + + + + | 2021-04-16 00:00 | Sprain of right ankle | [facility] | + + + + | 2021-08-16 00:00 | Hematoma of left lower leg | [facility] | | | | | + + + + | 2021-08-16 00:00 | Hematoma of left lower leg | [facility] | | | | | + + + + | 2021-11-11 00:00 | Syncope | [facility] | + + + + Procedures No [...] (missing) | | (unavailable | 08:02 | Howei | | | | | ) | [...]
[~2022-10-22 11:17] MED LIST changes: +ATORVASTATIN CA20 MG PO; +FUROSEMIDE20 MG PO; +LAMOTRIGINE200 MG PO; +LISINOPRIL2.5 MG PO; +TIZANIDINE HCL4 MG PO
--- OUTSIDE RECORDS SUMMARY | 2022-10-22 11:20 | XMS ---
PreManage Notification: MARV SEE Security Supervisor Wood Room Events No recent Security Events currently on file [facility] There are no care providers on record at this time. Ancelmo has no Care Guidelines for this patient. Frank VISIT COUNT (12 MO.) 2 JUVENAL Rojo TOTAL 2 NOTE: Visits indicate total known visits. 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
[2022-10-22 11:48] LABS: BASOPHILS 0.6 % (0-2); EOSINOPHILS 1.5 % (0-6); HEMATOCRIT 45.2 % (35.0-50.0); HEMOGLOBIN 15.3 g/dL (12.0-18.0); LYMPHOCYTES 13.3 % (24-44); MCH 33.2 (27-36); MCHC 33.8 g/dl (30-36); MCV 98.2 fl (81-99); MONOCYTES 5.7 % (0-12); NEUTROPHILS 78.9 % (39-80); PLATELET COUNT 193 K/uL (140-440); RDW 13.1 (10.5-15.0)
[2022-10-22 12:02] LABS: ALBUMIN 4.7 g/dL (3.4-5.0); ALBUMIN/GLOBULIN RATIO 1.31 (1.1-2.4); BILIRUBIN, TOTAL 0.9 ng/dL (0.2-1.0); BUN/CREATININE RATIO 16.87 (6.0-28.6); CALCIUM 9.5 mg/dL (8.5-10.1); CREATININE, SERUM 1.6 mg/dL (0.70-1.30); PROTEIN, TOTAL 8.3 g/dL (6.4-8.2)
[2022-10-22] MEDS ORDERED: ADDERALL XR 1010 MG PO (12:07)
[2022-10-22] MEDS ORDERED: NURTEC ODT75 MG PO (12:08)
[2022-10-22] MEDS ORDERED: K-TAB ER20 MEQ PO (12:28)
[2022-10-22] MEDS ORDERED: VYNDAMAX61 MG PO (12:29)
[2022-10-22] MEDS ORDERED: ELIQUIS5 MG PO (12:29)
[2022-10-22] MEDS ORDERED: TORSEMIDE20 MG PO (12:29)
[2022-10-22] MEDS ORDERED: SPIRONOLACTONE25 MG PO (12:29)
[2022-10-22 15:01] VITALS: BP 140/88
== END 2022-10-22 15:00 | disposition home or self-care (01) ==
LOC: ED 11:17
PROVIDERS: Emergency Medicine
DX: R27.0 Ataxia, unspecified (principal); R25.3 Fasciculation; I50.9 Heart failure, unspecified; Z79.01 Long term (current) use of anticoagulants; Z79.899 Other long term (current) drug therapy
CPT/HCPCS: 36415; 70450; 70496; 70498; 80053; 85025; 99284-25; J3030; Q9967

== ENCOUNTER 2024-10-16 13:34 | Emergency (ER) | payer OTHER, MEDICARE ==
[~2024-10-16] VITALS: Ht 182.9 cm; Wt 82.0 kg
[~2024-10-16 13:34] MED LIST changes: +ADDERALL XR 1010 MG PO; +ELIQUIS5 MG PO; +K-TAB ER20 MEQ PO; +NURTEC ODT75 MG PO; +SPIRONOLACTONE25 MG PO; +TORSEMIDE20 MG PO; +VYNDAMAX61 MG PO
[2024-10-16 14:37] LABS: BASOPHILS 0.4 % (0.2-1.2); EOSINOPHILS 1.1 % (0.8-7.0); LYMPHOCYTES 4.5 % (21.8-53.1); MCH 32.5 PG (25.7-32.2); MCHC 33.4 g/dL (32.3-36.5); MCV 97.4 fL (79.0-92.2); MONOCYTES 4.2 % (5.3-12.2); NEUTROPHILS 89.4 % (34.0-67.9); RBC 4.55 M/uL (4.63-6.08)
[2024-10-16] MEDS ORDERED: AMOX TR-K CLV1 EAC1 PO (14:50)
[2024-10-16 15:05] LABS: ALT (SGPT) 31.0 U/L (14-59); AST (SGOT) 23.0 U/L (15-37); GLOMERULAR FILTRATION RATE,EST 47.0 mL/min (>60); PROTEIN, TOTAL 7.3 g/dL (6.4-8.2); UREA NITROGEN 16.0 mg/dL (7-18)
[2024-10-16 16:53] VITALS: BP 133/90
--- NOTE | 2024-10-18 18:24 | EKG ---
[facility] [address] [place] [id number] Signed Sinus rhythm with 1st degree AV block with occasional premature ventricular complexes Nonspecific intraventricular block Minimal voltage criteria for LVH, may be normal variant ( Jett product ) Abnormal ECG When compared with ECG of 11-NOV-2021 07:22, fusion complexes are no longer present premature ventricular complexes are now present Questionable change in QRS axis Nonspecific T wave abnormality now evident in Inferior leads Nonspecific T wave abnormality, improved in Lateral leads Confirmed by Jose A Lyon DO ([id number]) on 10/18/2024 6:24:08 PM Electronically Signed By: JOSE A LYON DO 10/18/24 1824 PATIENT NAME: MARV SEE Electrocardiogram DATE OF : 57 PHYSICIAN: JOSE A LYON DO REPORT #: [id number] REPORT IS CONFIDENTIAL AND NOT TO BE RELEASED WITHOUT AUTHORIZATION
== END 2024-10-16 16:54 | disposition home or self-care (01) ==
LOC: ED 13:34
PROVIDERS: Emergency Medicine
DX: I50.9 Heart failure, unspecified (principal); R53.83 Other fatigue; R61 Generalized hyperhidrosis; E85.9 Amyloidosis, unspecified; Z79.01 Long term (current) use of anticoagulants; Z79.899 Other long term (current) drug therapy
CPT/HCPCS: 36415; 71045; 80053; 83735; 83880; 84484; 85025; 93005; 93010; 99285-25